=== PATIENT | female | born 1935 | race Caucasian/White ===

== ENCOUNTER 2021-10-18 13:19 | Inpatient (IN) ==
[2021-10-18] MEDS ORDERED: MoRPHine SULFATE 2 MG/ML CARP IV PRN (13:48)
[2021-10-18 14:06] LABS: Basophils # (auto) 0.01 K/uL (0-0.2); Basophils % (auto) 0.1 %; Eosinophils # (auto) 0.04 K/uL (0-0.5); Eosinophils % (auto) 0.6 %; Hematocrit (blood only) 41.9 % (37-47); Hemoglobin 14.5 g/dL (12.0-16.0); Immature Granulocytes # (auto) 0.02 K/uL (0.00-0.02); Immature Granulocytes % (auto) 0.3 %; Lymphocytes % (auto) 14.5 %; Mean Corpuscular Hemoglobin 31.7 pg (25-34); Mean Corpuscular Hgb Conc 34.6 g/dL (32-36); Mean Corpuscular Volume 91.7 fL (80-100); Mean Platelet Volume 9.5 fL (7.4-10.4); Monocytes # (auto) 0.33 K/uL (0.11-0.59); Monocytes % (auto) 4.8 %; Neutrophils # (auto) 5.51 K/uL (1.4-6.5); Neutrophils % (auto) 79.7 %; Platelet Count 238 K/uL (130-400); RDW Coefficient of Variation 14.4 % (11.5-14.5); RDW Standard Deviation 48.3 fL (36.4-46.3); Red Blood Count 4.57 M/uL (4.2-5.4); White Blood Count 6.91 K/uL (4.8-10.8)
--- NOTE | 2021-10-18 14:06 | Emergency Department Note ---
Impression & Plan Left hip pain, Closed fracture of left hip, Fall ED Provider Note NAME: NASIR MALONE AGE: 86 SEX: F : 1935 ARRIVES VIA: Ambulance INFORMANT: [Patient][nursing] ED PROVIDER(S): [Kyaw Shaw MD] CHIEF COMPLAINT: Fall HISTORY OF PRESENT ILLNESS: The patient is an 86-year-old female presents to the ER with left hip pain and lower back pain since falling. She somehow tripped over her vacuum. She fell on the left hip. She complained of a 10/10 pain that was improved after a small dose of IV fentanyl. She also received IV Zofran in route. The patient does not take any blood thinning medications. She did not strike her head or lose consciousness. She has no headache or neck pain. No upper back pain or chest pain. She has no upper extremity pain. She has been in baseline health as of late. REVIEW OF SYSTEMS: See HPI for pertinent positives and negatives. A total of ten systems were reviewed and were otherwise negative. PMHx/PSHx: See Below SOCIAL HISTORY: See Below. PHYSICAL EXAM: GENERAL: Patient is in no acute distress. HEENT: No acute trauma, normocephalic atraumatic, mucous membranes moist, no nasal congestion, no scleral icterus. NECK: No stridor, no adenopathy, nontender cervical spine, trachea is midline. LUNGS: Clear to auscultation bilaterally when listening anterior, no wheeze, no rhonchi, breath sounds equal. HEART: Without murmurs gallops or rubs, regular rate and rhythm. ABDOMEN: Soft, nontender, bowel sounds positive, no hernias, no peritonitis. EXTREMITIES: No cyanosis or edema, the patient is tender over the left lateral hip and there is a contusion in this area. Her hip is slightly flexed and her knee is flexed and there is some internal rotation to the left lower extremity. The left lower extremity is somewhat shortened. There is no evidence for left lower extremity neurovascular compromise. NEUROLOGIC: Oriented x 3, no acute motor or sensory deficits, no focal weakness. SKIN: No rash, no jaundice, no diaphoresis. DIFFERENTIAL DIAGNOSIS: Fracture, dislocation, sprain or strain, contusion, neurovascular compromise, compartment syndrome, soft tissue injury, as well as other pathologies. EMERGENCY DEPARTMENT COURSE/PROCEDURES: ECG: Indication was fall and potential hip fracture. The ECG shows a normal sinus rhythm with some sinus arrhythmia. The rate is 80. There is no ST elevation, no PVCs. There is poor R wave progression. The QTc is 445. Continuous Cardiac Monitoring: An order was placed for continuous cardiac monitoring. The monitor shows a rate of 80 with normal sinus rhythm. MEDICAL DECISION MAKING: There is no leukocytosis or concerning anemia. There is a normal platelet count. No coagulopathy. No significant electrolyte abnormality in need of emergent correction. No concerning liver enzyme elevation. Urinalysis did not show infection. Covid testing returned negative. Chest x-ray showed some chronic findings, no CHF or pneumonia. Left hip and pelvis films were done, a left subcapital hip fracture was seen. CT imaging of the lumbar spine did not show any acute fracture. CT imaging of the pelvis showed the same subcapital left hip fracture. The patient received IV morphine for pain, she has been resting fairly comfortably. The patient appears to have injured only her left hip from her fall. He is going to require a hospital stay and orthopedic consult/intervention. I spoke with orthopedics, I spoke with the case management team. The on-call hospitalist was consulted. The patient is aware of her findings. Past Med/Surg History Medical History CAD (coronary artery disease) DM type 2 (diabetes mellitus, type 2) HLD (hyperlipidemia) HTN (hypertension) Surgical History H/O left wrist surgery History of cataract surgery Hx of CABG 2001 - Initially she received CORTES to LAD but developed spasm and redo CORTES was done but still had spasm and she received vein graft to the LAD more distally. 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[employer] Generating Required: No Beliefs That Will Affect Care: None Current Living Situation: Alone Feels Safe at Home: Yes Assistive Devices: Oxygen - Continuous Allergies Allergies Allergy/AdvReac Type Severity Reaction Status Date / Time Penicillins Allergy Unknown Unknown Verified 10/18/21 14:17 Home Meds Home Medications Medication Instructions Recorded Confirmed amlodipine 2.5 mg tablet 2.5 mg PO DAILY 10/18/21 10/18/21 aspirin 81 mg tablet,delayed 81 mg PO HS 10/18/21 10/18/21 release (Aspirin Low Dose) atorvastatin 40 mg tablet 80 mg PO DAILY 10/18/21 10/18/21 metformin 500 mg tablet 500 mg PO DAILY 10/18/21 10/18/21 metoprolol succinate 50 mg 50 mg PO DAILY 10/18/21 10/18/21 tablet,extended release 24 hr multivitamin 1 tab PO DAILY 10/18/21 10/18/21 omeprazole 40 mg capsule,delayed 40 mg PO DAILY 10/18/21 10/18/21 release ramipril 10 mg capsule 10 mg PO DAILY 10/18/21 10/18/21 Results & Data (ED) Vital Signs Vital Signs - 24 hr 10/18/21 13:28 10/18/21 13:35 Temperature 36.6 C Temperature Source Oral Pulse Rate 80 Respiratory Rate 16 Respiratory Effort / Characteristics Non-Labored Spontaneous Respiratory Depth Normal Respiratory Pattern Regular Blood Pressure 192/98 H Blood Pressure Mean 129 Blood Pressure Position Lying Pulse Oximetry 88 L 95 Oxygen Delivery Method Room Air Nasal Cannula Oxygen Flow Rate 2 Sepsis Recent Fever Within 48 Hours No Sepsis New/Unexplained Change in Mental Status No Sepsis Action Taken by Nursing No Action Required Home Medications Current Medication List: was personally reviewed by me Laboratory Data Attestation: I reviewed the patient's lab results. Result diagrams: 10/18/21 13:30 10/18/21 13:30 Lab Results 10/18/21 10/18/21 10/18/21 Range/Units 13:30 13:30 13:30 WBC 6.91 (4.8-10.8) K/uL RBC 4.57 (4.2-5.4) M/uL Hgb 14.5 (12.0-16.0) g/dL Hct 41.9 (37-47) % MCV 91.7 (80-100) fL MCH 31.7 (25-34) pg MCHC 34.6 (32-36) g/dL RDW Std Deviation 48.3 H (36.4-46.3) fL RDW Coeff of Maki 14.4 (11.5-14.5) % Plt Count 238 (130-400) K/uL MPV 9.5 (7.4-10.4) fL Immature Gran % (Auto) 0.3 % Neut % (Auto) 79.7 % Lymph % (Auto) 14.5 % Dent % (Auto) 4.8 % Eos % (Auto) 0.6 % Baso % (Auto) 0.1 % Neut # (Auto) 5.51 (1.4-6.5) K/uL Lymph # (Auto) 1.00 L (1.2-3.4) K/uL Dent # (Auto) 0.33 (0.11-0.59) K/uL Eos # (Auto) 0.04 (0-0.5) K/uL Baso # (Auto) 0.01 (0-0.2) K/uL Immature Gran # (Auto) 0.02 (0.00-0.02) K/uL PT 11.5 (9.0-12.0) Seconds INR 1.1 (0.9-1.1) APTT 25.1 (21.0-31.0) Seconds PTT Ratio 0.9 Sodium 137 (136-145) mmol/L Potassium 3.5 (3.5-5.1) mmol/L Chloride 101 (98-107) mmol/L Carbon Dioxide 28 (21-32) mmol/L Anion Gap 8 (3-11) BUN 18 (6-23) mg/dl Creatinine 0.75 (0.6-1.2) mg/dl Est Cr Clr Drug Dosing Not Reportable Est GFR ( Amer) 83.7 ml/min Est GFR (Non-Af Amer) 72.2 ml/min BUN/Creatinine Ratio 24.0 H (10-20) Glucose 195 H (70-99(Fasting)) mg/dl Calcium 8.6 (8.5-10.1) mg/dl Total Bilirubin 0.6 (0.2-1.0) mg/dl AST 22 (13-39) U/L ALT 24 (7-52) U/L Alkaline Phosphatase 73 (34-104) U/L Total Protein 6.6 (6.0-8.3) gm/dl Albumin 4.2 (3.4-5.0) gm/dl Globulin 2.4 L (2.5-4.0) gm/dl Albumin/Globulin Ratio 1.8 (0.9-2) Urine Color Urine Appearance (Clear) Urine pH (4.5-7.5) Ur Specific [place] (1.000-1.030) Urine Protein (Negative) Urine Glucose (UA) (Negative) Urine Ketones (Negative) Urine Blood (Negative) Urine Nitrite (Negative) Urine Bilirubin (Negative) Urine Urobilinogen (Negative) Ur Leukocyte Esterase (Negative) SARS-CoV-2, RNA, NAAT (NEGATIVE) 10/18/21 10/18/21 Range/Units 14:03 15:16 WBC (4.8-10.8) K/uL RBC (4.2-5.4) M/uL Hgb (12.0-16.0) g/dL Hct (37-47) % MCV (80-100) fL MCH (25-34) pg MCHC (32-36) g/dL RDW Std Deviation (36.4-46.3) fL RDW Coeff of Maki (11.5-14.5) % Plt Count (130-400) K/uL MPV (7.4-10.4) fL Immature Gran % (Auto) % Neut % (Auto) % Lymph % (Auto) % Dent % (Auto) % Eos % (Auto) % Baso % (Auto) % Neut # (Auto) (1.4-6.5) K/uL Lymph # (Auto) (1.2-3.4) K/uL Dent # (Auto) (0.11-0.59) K/uL Eos # (Auto) (0-0.5) K/uL Baso # (Auto) (0-0.2) K/uL Immature Gran # (Auto) (0.00-0.02) K/uL PT (9.0-12.0) Seconds INR (0.9-1.1) APTT (21.0-31.0) Seconds PTT Ratio Sodium (136-145) mmol/L Potassium (3.5-5.1) mmol/L Chloride (98-107) mmol/L Carbon Dioxide (21-32) mmol/L Anion Gap (3-11) BUN (6-23) mg/dl Creatinine (0.6-1.2) mg/dl Est Cr Clr Drug Dosing Est GFR ( Amer) ml/min Est GFR (Non-Af Amer) ml/min BUN/Creatinine Ratio (10-20) Glucose (70-99(Fasting)) mg/dl Calcium (8.5-10.1) mg/dl Total Bilirubin (0.2-1.0) mg/dl AST (13-39) U/L ALT (7-52) U/L Alkaline Phosphatase (34-104) U/L Total Protein (6.0-8.3) gm/dl Albumin (3.4-5.0) gm/dl Globulin (2.5-4.0) gm/dl Albumin/Globulin Ratio (0.9-2) Urine Color Nash Urine Appearance Clear (Clear) Urine pH 7.5 (4.5-7.5) Ur Specific [place] 1.013 (1.000-1.030) Urine Protein Negative (Negative) Urine Glucose (UA) Trace H (Negative) Urine Ketones Negative (Negative) Urine Blood Negative (Negative) Urine Nitrite Negative (Negative) Urine Bilirubin Negative (Negative) Urine Urobilinogen Negative (Negative) Ur Leukocyte Esterase Negative (Negative) SARS-CoV-2, RNA, NAAT NEGATIVE (NEGATIVE) Administered Medications Acetaminophen (Acetaminophen 325 Mg Tab) 650 mg PO Q8 ZIGGY Stop: 11/17/21 17:29 Last Admin: 10/18/21 18:05 Dose: 650 mg Documented by: [id number] Insulin Aspart (Insulin Aspart Per Unit) 0 units SC ACHS ZIGGY Stop: 11/17/21 17:14 Last Admin: 10/18/21 18:05 Dose: 1 units Documented by: [id number] Cosigned by: [id number] Imaging Data Radiologist's Impression: Hip/Pelvis X-Ray 10/18/21 13:48 XR hip LT 2V w pelvis CLINICAL HISTORY: Fall. Left hip pain. COMPARISON STUDY: None. FINDINGS: There is impacted and angulated left femoral neck fracture. The visualized pelvic bones and right hip are intact. Degenerative changes within the lumbar spine. No dislocation. IMPRESSION: Impacted left femoral neck fracture. ACT 112: Negative or not required by law. Electronically signed by: Obed Feliz M.D. 10/18/2021 2:[address] 10/18/21 13:[address] DOSE: HISTORY: Fall. Low back pain. TECHNIQUE: Multiaxial CT images of the lumbar spine were performed and reformatted in the sagittal and coronal plane without the use of contrast. A dose lowering technique was utilized adhering to the principles of ALARA. COMPARISON: None. FINDINGS: Moderate central canal narrowing at L3-L4 and L4-5 due to broad-based posterior disc bulges and ligamentum flavum and facet hypertrophy. Paravertebral soft tissues are unremarkable. Dextroscoliosis. The visualized sacrum appears intact. No fracture or subluxation. 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 Partially calcified 3 cm right renal cyst. IMPRESSION: 1. No fractures within the lumbar spine. 2. Degenerative changes as described above. 3. Dextroscoliosis. ACT 112: Negative or not required by law. Electronically signed by: Obed Feliz M.D. 10/18/2021 2:[address] 10/18/21 13:48 CT pelvis wo con HISTORY: Left hip pain. fall, pain TECHNIQUE: Multiaxial CT images of the pelvis were performed without contrast and reformatted in the sagittal and coronal plane. COMPARISON STUDY: None. FINDINGS: There is a slightly impacted and angulated subcapital left femoral neck fracture. No dislocation. The visualized pelvic bones and right hip appear intact. 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 No fractures identified within the sacrum. The bladder is decompressed by Bravo catheter. Gas within the bladder lumen is likely due to the catheterization. No pelvic hematoma. IMPRESSION: Slightly impacted and angulated subcapital left femoral neck fracture. ACT 112: Negative or not required by law. Electronically signed by: Obed Feliz M.D. 10/18/2021 2:44 PM Chest X-Ray 10/18/21 13:49 SINGLE VIEW CHEST CLINICAL HISTORY: Fall. FINDINGS: An AP, portable, supine chest radiograph is obtained. No prior studies are available for comparison at the time of dictation. The patient is status post midline sternotomy. The heart is enlarged noting atherosclerotic calcification of the thoracic aorta. The pulmonary vasculature is noncongested. Interstitial thickening is likely chronic. There is bibasilar sc arring/atelectasis. No airspace consolidation or large pleural effusion is identified. No pneumothorax is seen. The skeletal structures are osteopenic. The bony thorax is grossly intact. IMPRESSION: Cardiomegaly with no acute cardiopulmonary abnormality. ACT 112: Negative or not required by law. Electronically signed by: Kyaw Villalobos M.D. 10/18/2021 2:30 PM Discharge Plan Visit Data Chief Complaint: Fall Stated Complaint: FALL, L HIP PAIN ED Provider: Kyaw Shaw Discharge Problem: Left hip pain, Closed fracture of left hip, Fall Patient Disposition: Admitted As Inpatient Condition: Good Discharge Instructions Interventions: ED Discharge Assessment Last Done: 10/18/21 16:37
[2021-10-18 14:12] LABS: INR 1.1 (0.9-1.1); Partial Thromboplastin Ratio 0.9; Partial Thromboplastin Time 25.1 Seconds (21.0-31.0); Prothrombin Time 11.5 Seconds (9.0-12.0)
[2021-10-18 14:19] LABS: Alanine Aminotransferase 24 U/L (7-52); Albumin Globulin Ratio 1.8 (0.9-2); Albumin Level 4.2 gm/dl (3.4-5.0); Alkaline Phosphatase 73 U/L (34-104); Anion Gap 8 (3-11); Aspartate Aminotransferase 22 U/L (13-39); Bilirubin,Total 0.6 mg/dl (0.2-1.0); Blood Urea Nitrogen 18 mg/dl (6-23); Calcium 8.6 mg/dl (8.5-10.1); Carbon Dioxide 28 mmol/L (21-32); Chloride 101 mmol/L (98-107); Est GFR (African American) 83.7 ml/min; Est GFR (Non-African American) 72.2 ml/min; Globulin 2.4 gm/dl (2.5-4.0); Glucose 195 mg/dl (70-99(Fasting)); Potassium 3.5 mmol/L (3.5-5.1); Sodium 137 mmol/L (136-145); Total Protein 6.6 gm/dl (6.0-8.3)
--- NOTE | 2021-10-18 14:31 | XRay Report ---
SINGLE VIEW CHEST CLINICAL HISTORY: Fall. FINDINGS: An AP, portable, supine chest radiograph is obtained. No prior studies are available for co mparison at the time of dictation. The patient is status post midline sternotomy. The heart is enlar ged noting atherosclerotic calcification of the thoracic aorta. The pulmonary vasculature is nonconge sted. Interstitial thickening is likely chronic. There is bibasilar scarring/atelectasis. No airspace consolidation or large pleural effusion is identified. No pneumothorax is seen. The skeletal structu res are osteopenic. The bony thorax is grossly intact. IMPRESSION: Cardiomegaly with no acute cardiopulmonary abnormality. ACT 112: Negative or not required by law. Electronically signed by: Kyaw Villalobos M.D. 10/18/2021 2:30 PM
--- NOTE | 2021-10-18 14:42 | XRay Report ---
XR hip LT 2V w pelvis CLINICAL HISTORY: Fall. Left hip pain. COMPARISON STUDY: None. FINDINGS: There is impacted and angulated left femoral neck fracture. The visualized pelvic bones and right hip are intact. Degenerative changes within the lumbar spine. No dislocation. IMPRESSION: Impacted left femoral neck fracture. ACT 112: Negative or not required by law. Electronically signed by: Obed Feliz M.D. 10/18/2021 2:41 PM
[2021-10-18 14:43] LABS: Appearance Urine Clear (Clear); Bilirubin Urine Negative (Negative); Blood Urine Negative (Negative); Color Urine Orange; Glucose Urine UA Trace (Negative); Ketones Urine Negative (Negative); Leukocyte Esterase Urine Negative (Negative); Nitrite Urine Negative (Negative); Protein Urine Negative (Negative); Specific Gravity Urine 1.013 (1.000-1.030); Urobilinogen Urine Negative (Negative); pH Urine 7.5 (4.5-7.5)
--- NOTE | 2021-10-18 14:45 | CT Scan Report ---
CT pelvis wo con HISTORY: Left hip pain. fall, pain TECHNIQUE: Multiaxial CT images of the pelvis were performed without contrast and reformatted in the sagittal and coronal plane. COMPARISON STUDY: None. FINDINGS: There is a slightly impacted and angulated subcapital left femoral neck fracture. No disloc ation. The visualized pelvic bones and right hip appear intact. 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 No fractures identified within the sacrum. The bladder is decompressed by Bravo catheter. Gas within the bladder lumen is likely due to the catheterization. No pelvic hematoma. IMPRESSION: Slightly impacted and angulated subcapital left femoral neck fracture. ACT 112: Negative or not required by law. Electronically signed by: Obed Feliz M.D. 10/18/2021 2:44 PM
--- NOTE | 2021-10-18 14:50 | CT Scan Report ---
LUMBAR SPINE CT CT DOSE: HISTORY: Fall. Low back pain. TECHNIQUE: Multiaxial CT images of the lumbar spine were performed and reformatted in the sagittal an d coronal plane without the use of contrast. A dose lowering technique was utilized adhering to the principles of ALARA. COMPARISON: None. FINDINGS: Moderate central canal narrowing at L3-L4 and L4-5 due to broad-based posterior disc bulges and ligamentum flavum and facet hypertrophy. Paravertebral soft tissues are unremarkable. Dextroscol iosis. The visualized sacrum appears intact. No fracture or subluxation. Moderate to severe degenerat francis changes within the lumbar spine most pronounced at the L4-5 level.There is an 8 mm calcified dist al right splenic artery aneurysm. Partially calcified 3 cm right renal cyst. IMPRESSION: 1. No fractures within the lumbar spine. 2. Degenerative changes as described above. 3. Dextroscoliosis. ACT 112: Negative or not required by law. Electronically signed by: Obed Feliz M.D. 10/18/2021 2:48 PM
--- NOTE | 2021-10-18 16:17 | History & Physical Report ---
Date of Service October 18, 2021 Assessment & Plan (1) Fracture of femoral neck, left: Plan: Admit to [facility] [place] Patient presenting from home after a mechanical fall In the ED, imaging shows impacted left femoral neck fracture Ortho consult Pain control with bowel regimen PT/OT when appropriate EKG and CXR reviewed. Patient denies any recent cardiopulmonary symptoms. Patient will be considered at least moderate risk given advanced age and comorbid conditions to proceed surgery. (2) Hypoxia: Plan: 88% on room air after IV pain medications Saturating well on 2L CXR clear Incentive spirometry encouraged Wean O2 as able (3) CAD (coronary artery disease): Plan: Remote history of CABG in 2001 Appears stable, no reports of chest pain, EKG without acute ST changes Resume ASA at the discretion of Ortho Continue statin, beta-velia (4) HTN (hypertension): Plan: BP elevated on presentation, likely secondary to pain, improved after pain medication Continue metoprolol, ramipril, amlodipine (5) DM type 2 (diabetes mellitus, type 2): Plan: Hgb A1c 7.8 06/2021 Hold oral agents and utilize NovoLog per protocol while hospitalized Update A1c with a.m. labs (6) DVT prophylaxis: Plan: SCDs for now History of Present Illness Chief Complaint: Left Hip Pain Primary Care Provider: Nannette Johnson MD 86-year-old female with PMH DM type II, CAD s/p CABG in 2001, HTN, DM type II, and other problems listed below who presents to the ED for evaluation of left hip pain. Patient reports that she was using her vacuum at home and tripped over the cord. She then fell onto her left side. She was home alone however her son stopped by about 15 minutes after. EMS was called and patient was brought to the ED for further evaluation. Patient did not strike her head and she denies any loss of consciousness. Reports she otherwise has been feeling well recently. Denies any exertional chest pain or shortness of breath. No lightheadedness, dizziness, diaphoresis, syncopal events. Denies abdominal pain, nausea, vomiting, diarrhea. No urinary symptoms. In the ED, patient is found to have slightly impacted and angulated subcapital left femoral neck fracture. Labs unremarkable. Patient was mildly hypoxic at 88% after receiving IV pain medication. She is saturating well on 2 L of oxygen. Allergies Allergy/AdvReac Type Severity Reaction Status Date / Time Penicillins Allergy Unknown Unknown Verified 10/18/21 14:17 Home Medications Medication Instructions Recorded Confirmed Type amlodipine 2.5 mg tablet 2.5 mg PO DAILY 10/18/21 10/18/21 History aspirin 81 mg tablet,delayed 81 mg PO HS 10/18/21 10/18/21 History release (Aspirin Low Dose) atorvastatin 40 mg tablet 80 mg PO DAILY 10/18/21 10/18/21 History metformin 500 mg tablet 500 mg PO DAILY 10/18/21 10/18/21 History metoprolol succinate 50 mg 50 mg PO DAILY 10/18/21 10/18/21 History tablet,extended release 24 hr multivitamin 1 tab PO DAILY 10/18/21 10/18/21 History omeprazole 40 mg capsule,delayed 40 mg PO DAILY 10/18/21 10/18/21 History release ramipril 10 mg capsule 10 mg PO DAILY 10/18/21 10/18/21 History Past Med/Surg History Medical History CAD (coronary artery disease) DM type 2 (diabetes mellitus, type 2) HLD (hyperlipidemia) HTN (hypertension) Surgical History H/O left wrist surgery History of cataract surgery Hx of CABG 2001 - Initially she received CORTES to LAD but developed spasm and redo CORTES was done but still had spasm and she received vein graft to the LAD more distally. Family History Mother Breast cancer Social History Smoking Status: Never smoker Second Hand Exposure: No; Hx Alcohol Use: No Hx Substance Use: No Preferred Language: Mac[place] Medicine Technologist Required: No Beliefs That Will Affect Care: None Current Living Situation: Alone Feels Safe at Home: Yes Assistive Devices: Oxygen - Continuous Review of Systems Review of Systems: ROS per HPI, all other systems reviewed and negative Physical Exam Constitutional: + thin; no acute distress Vitals as above Eyes: PERRL, conjunctivae normal, anicteric sclerae ENMT: external ear and nose normal, oropharynx normal Respiratory: normal respiratory effort, lungs clear to auscultation Cardiovascular: Rate/Rhythm: regular rate and regular rhythm Vessels: normal peripheral pulses Extremities: no edema Gastrointestinal (Abdomen): normal bowel sounds, soft, nontender, no hepatosplenomegaly Musculoskeletal: LLE shortened and externally rotated Skin: no rashes, warm and dry Neurologic: PERRL, EOMI, accommodation nl, no face palsy, no dysarthria Psychiatric: A+Ox3, euthymic affect Results & Data Results & Data ([facility]) Vital Signs (Past 12 Hours) Vital Signs Temp Pulse Resp BP Pulse Ox 10/18/21 13:35 95 10/18/21 13:28 36.6 C 80 16 192/98 H 88 L Laboratory Results Short CBC 10/18/21 Range/Units 13:30 WBC 6.91 (4.8-10.8) K/uL Hgb 14.5 (12.0-16.0) g/dL Hct 41.9 (37-47) % Plt Count 238 (130-400) K/uL BMP 10/18/21 13:30 Sodium 137 Potassium 3.5 Chloride 101 Carbon Dioxide 28 BUN 18 Creatinine 0.75 Glucose 195 H Calcium 8.6 Liver Function 10/18/21 Range/Units 13:30 Total Bilirubin 0.6 (0.2-1.0) mg/dl AST 22 (13-39) U/L ALT 24 (7-52) U/L Alkaline Phosphatase 73 (34-104) U/L Albumin 4.2 (3.4-5.0) gm/dl Urine 10/18/21 Range/Units 14:03 Urine Color [place] Urine Appearance Clear (Clear) Urine pH 7.5 (4.5-7.5) Ur Specific [place] 1.013 (1.000-1.030) Urine Protein Negative (Negative) Urine Glucose (UA) Trace H (Negative) Diagnostic Findings Hip/Pelvis X-Ray 10/18/21 13:48 XR hip LT 2V w pelvis CLINICAL HISTORY: Fall. Left hip pain. COMPARISON STUDY: None. FINDINGS: There is impacted and angulated left femoral neck fracture. The visualized pelvic bones and right hip are intact. Degenerative changes within the lumbar spine. No dislocation. IMPRESSION: Impacted left femoral neck fracture. ACT 112: Negative or not required by law. Electronically signed by: Obed Feliz M.D. 10/18/2021 2:[address] 10/18/21 13:[address] DOSE: HISTORY: Fall. Low back pain. TECHNIQUE: Multiaxial CT images of the lumbar spine were performed and reformatted in the sagittal and coronal plane without the use of contrast. A dose lowering technique was utilized adhering to the principles of ALARA. COMPARISON: None. FINDINGS: Moderate central canal narrowing at L3-L4 and L4-5 due to broad-based posterior disc bulges and ligamentum flavum and facet hypertrophy. Paravertebral soft tissues are unremarkable. Dextroscoliosis. The visualized sacrum appears intact. No fracture or subluxation. 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 Partially calcified 3 cm right renal cyst. IMPRESSION: 1. No fractures within the lumbar spine. 2. Degenerative changes as described above. 3. Dextroscoliosis. ACT 112: Negative or not required by law. Electronically signed by: Obed Feliz M.D. 10/18/2021 2:[address] 10/18/21 13:48 CT pelvis wo con HISTORY: Left hip pain. fall, pain TECHNIQUE: Multiaxial CT images of the pelvis were performed without contrast and reformatted in the sagittal and coronal plane. COMPARISON STUDY: None. FINDINGS: There is a slightly impacted and angulated subcapital left femoral neck fracture. No dislocation. The visualized pelvic bones and right hip appear intact. 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 No fractures identified within the sacrum. The bladder is decompressed by Bravo catheter. Gas within the bladder lumen is likely due to the catheterization. No pelvic hematoma. IMPRESSION: Slightly impacted and angulated subcapital left femoral neck fracture. ACT 112: Negative or not required by law. Electronically signed by: Obed Feliz M.D. 10/18/2021 2:44 PM Chest X-Ray 10/18/21 13:49 SINGLE VIEW CHEST CLINICAL HISTORY: Fall. FINDINGS: An AP, portable, supine chest radiograph is obtained. No prior studies are available for comparison at the time of dictation. The patient is status post midline sternotomy. The heart is enlarged noting atherosclerotic calcification of the thoracic aorta. The pulmonary vasculature is noncongested. Interstitial thickening is likely chronic. There is bibasilar scarring/atelectasis. No airspace consolidation or large pleural effusion is identified. No pneumothorax is seen. The skeletal structures are osteopenic. The bony thorax is grossly intact. IMPRESSION: Cardiomegaly with no acute cardiopulmonary abnormality. ACT 112: Negative or not required by law. Electronically signed by: Kyaw Villalobos M.D. 10/18/2021 2:30 PM Code Status & VTE Plan Code Status Patient is a full code as per my discussion with her. Patient states that her daughter, Payal, would make decisions for her in the event she were to be unable to. VTE Prophylaxis Plan VTE Prophylaxis will be ordered: Yes Supervising Physician Co-Signing Physician Notes 86-year-old female with PMH of DM type II, CAD s/p CABG in 2001, HTN, DM type II who presented to the ED 10/18 after tripping over left side, mechanical fall, no nausea/dizziness/palpitations/sweating/warmth/loss of consciousness surrounding fall. Patient found to have left femoral neck fracture, orthopedics evaluated, for repair tomorrow. Patient also pain and elevated blood pressure likely related. Pain control, resume home meds, cautious with antihypertensive especially in postop period. GENERAL: Alert and oriented x3. NAD, on 2L. HEENT: No pallor, no icterus. Pupils equal, round and reactive to light. Oral mucosa moist. NECK: No JVD, no neck masses. HEART: S1 and S2 heard. Regular rate and rhythm. No murmur, no gallop. RESPIRATORY SYSTEM: Normal AP diameter. No accessory muscle use. No wheezing, no crackles. ABDOMEN: Soft, bowel sounds present, nontender, no distention. CENTRAL NERVOUS SYSTEM: No facial droop. Speech is clear. Obeys simple commands. Moves extremities. EXTREMITIES: No edema, no erythema seen. LLE with intact distal NV status, left hip with approx 7x5 cm bruise. I have seen and examined the patient and have discussed the case with the provider above. I agree with the assessment and plan as stated.
--- NOTE | 2021-10-18 16:51 | Orthopedic Consultation ---
Date of Service October 18, 2021 Assessment & Plan (1) Fracture of femoral neck, left: I went over the diagnosis as well as treatment options with her and her daughter at bedside. I did recommend surgery which would include a left hip hemiarthroplasty. Her and her daughter understand the risk, benefits, and alternatives to the procedure and elected to proceed. Questions were answered at bedside. Time was spent describing the procedure and postop expectations. The decision was made to proceed with surgery. She will be admitted to the medicine service. She will be n.p.o. past midnight tonight. She will likely proceed with a left hip hemiarthroplasty by Dr. Medina tomorrow. History of Present Illness Reason for Consultation: Displaced left femoral neck fracture. Requesting Physician: . Yamileth is a pleasant 86-year-old female who is usually in independent ambulator but she sometimes uses a cane or walker. She lives in a house by herself but family is nearby. She fell earlier today injuring her left hip. She came to the emergency room and radiographs demonstrated a displaced left femoral neck fracture. Orthopedics was consulted to evaluate and treat. Allergies Allergy/AdvReac Type Severity Reaction Status Date / Time Penicillins Allergy Unknown Unknown Verified 10/18/21 14:17 Home Medications Medication Instructions Recorded Confirmed Type amlodipine 2.5 mg tablet 2.5 mg PO DAILY 10/18/21 10/18/21 History aspirin 81 mg tablet,delayed 81 mg PO HS 10/18/21 10/18/21 History release (Aspirin Low Dose) atorvastatin 40 mg tablet 80 mg PO DAILY 10/18/21 10/18/21 History metformin 500 mg tablet 500 mg PO DAILY 10/18/21 10/18/21 History metoprolol succinate 50 mg 50 mg PO DAILY 10/18/21 10/18/21 History tablet,extended release 24 hr multivitamin 1 tab PO DAILY 10/18/21 10/18/21 History omeprazole 40 mg capsule,delayed 40 mg PO DAILY 10/18/21 10/18/21 History release ramipril 10 mg capsule 10 mg PO DAILY 10/18/21 10/18/21 History Past Med/Surg History Medical History CAD (coronary artery disease) DM type 2 (diabetes mellitus, type 2) HLD (hyperlipidemia) HTN (hypertension) Surgical History H/O left wrist surgery History of cataract surgery Hx of CABG 2001 - Initially she received CORTES to LAD but developed spasm and redo CORTES was done but still had spasm and she received vein graft to the LAD more distally. Family History Mother Breast cancer Social History Smoking Status: Never smoker Hx Alcohol Use: No Feels Safe at Home: Yes Review of Systems All systems reviewed & are unremarkable except as noted in HPI & below. Physical Exam On physical examination of the left hip, there are no abrasions, lesions, or lacerations of the skin. Her left leg is shortened and externally rotated. She is neurovascularly intact. Constitutional WD/WN, vitals as above Eyes PERRL, conjunctivae normal, anicteric sclerae ENMT external ear and nose normal, oropharynx normal Neck trachea midline, no thyromegaly Respiratory normal respiratory effort Cardiovascular RRR, no murmur, no edema Gastrointestinal (Abdomen) normal bowel sounds, soft, nontender, no hepatosplenomegaly Psychiatric A+Ox3, euthymic affect Results & Data Results & Data Laboratory Results . Diagnostic Findings X-rays of the left hip do show a displaced left femoral neck fracture.. PG Care Time/CCT Total # of Minutes Spent Total Time Spent with Patient: Total time spent is greater than 50% in coordination of care (as documented) at patient's floor/unit and/or counseling patient: Coding Level of Care Code 69393 Inpt Consult Level 4 (57 - DECISION FOR SURGERY) Diagnoses Fracture of femoral neck, left S72.002A
[2021-10-18] MEDS ORDERED: bisacodyL 10 MG SUPP PR PRN (17:02)
[2021-10-18] MEDS ORDERED: DEXTROSE 50% 50 ML SYRINGE IV PRN (17:02)
[2021-10-18] MEDS ORDERED: MAGNESIUM HYDROXIDE SUSP 30 ML UDC PO PRN (17:02)
[2021-10-18] MEDS ORDERED: CARBOHYDRATES FOR HYPOGLYCEMIA PO PRN (17:02)
[2021-10-18] MEDS ORDERED: GLUCOSE 10 TABS/TUBE PO PRN (17:02)
[2021-10-18] MEDS ORDERED: GLUCAGON FOR INJ 1 MG VIAL SQ PRN (17:02)
[2021-10-18] MEDS ORDERED: GLUCOSE 40% GEL 15 GM TUBE PO PRN (17:02)
[2021-10-18] MEDS ORDERED: NALOXONE HCL 0.4 MG/1 ML VIAL/CARP IV PRN (17:02)
[2021-10-18] MEDS: ACETAMINOPHEN 325 MG TAB PO SCH ×2 (18:05→22:45)
[2021-10-18] MEDS: INSULIN ASPART PER UNIT SC SCH ×2 (18:05→21:01)
--- NOTE | 2021-10-18 18:06 | Anesthesiology Consultation ---
Date of Service October 18, 2021 Assessment & Plan (1) Encounter for pre-operative examination: Chart Review Chart Review: Acceptable Risk for Surgery and Patient NOT seen in Pre Admission Testing Consults Requested none History Surgery Operation Date: 10/19/21 07:00 Proposed Procedures p Left Bipolar Hip Prosthesis - Kyle Medina MD Height/Weight Height: 5 ft 2 in Weight: 48.6 kg Allergies Allergy/AdvReac Type Severity Reaction Status Date / Time Penicillins Allergy Unknown Unknown Verified 10/18/21 14:17 Medications Home Medications Medication Instructions Recorded Confirmed Last Taken amlodipine 2.5 mg tablet 2.5 mg PO DAILY 10/18/21 10/18/21 Unknown aspirin 81 mg tablet,delayed 81 mg PO HS 10/18/21 10/18/21 Unknown release (Aspirin Low Dose) atorvastatin 40 mg tablet 80 mg PO DAILY 10/18/21 10/18/21 Unknown metformin 500 mg tablet 500 mg PO DAILY 10/18/21 10/18/21 Unknown metoprolol succinate 50 mg 50 mg PO DAILY 10/18/21 10/18/21 Unknown tablet,extended release 24 hr multivitamin 1 tab PO DAILY 10/18/21 10/18/21 Unknown omeprazole 40 mg capsule,delayed 40 mg PO DAILY 10/18/21 10/18/21 Unknown release ramipril 10 mg capsule 10 mg PO DAILY 10/18/21 10/18/21 Unknown Past Medical History Medical History CAD (coronary artery disease) DM type 2 (diabetes mellitus, type 2) HLD (hyperlipidemia) HTN (hypertension) Past Family History Family History Mother Breast cancer Past Surgical History Surgical History H/O left wrist surgery History of cataract surgery Hx of CABG 2001 - Initially she received CORTES to LAD but developed spasm and redo CORTES was done but still had spasm and she received vein graft to the LAD more distally. Social History Smoking Status: Never smoker Hx Alcohol Use: No Hx Substance Use: No substance use type: does not use Physical Exam Vital Signs Last Vital Signs Temp 36.4 C L 10/18/21 17:03 Pulse 88 10/18/21 17:03 Resp 18 10/18/21 17:03 BP 151/83 H 10/18/21 17:03 Pulse Ox 95 10/18/21 17:03 Testing Laboratory Results 10/18/21 13:30 10/18/21 13:30 PT 11.5 Seconds (9.0-12.0) 10/18/21 13:30 INR 1.1 (0.9-1.1) 10/18/21 13:30 APTT 25.1 Seconds (21.0-31.0) 10/18/21 13:30 Urine Color [place] 10/18/21 14:03 Urine Appearance Clear (Clear) 10/18/21 14:03 Urine pH 7.5 (4.5-7.5) 10/18/21 14:03 Ur Specific [place] 1.013 (1.000-1.030) 10/18/21 14:03 Urine Protein Negative (Negative) 10/18/21 14:03 Urine Glucose (UA) Trace (Negative) H 10/18/21 14:03 Urine Ketones Negative (Negative) 10/18/21 14:03 Urine Nitrite Negative (Negative) 10/18/21 14:03 Ur Leukocyte Esterase Negative (Negative) 10/18/21 14:03 10/18/21 17:44 POC Glucose 200 H Electrocardiogram Date: 10/18/21 Findings: + NSR @ (80) sinus arrhythmia, possible left atrial enlargement, anterior infarct age undetermined, no prior EKG for comparison Chest X-Ray Date: 10/18/21 Findings: + NAD and + cardiomegaly
[2021-10-18] MEDS: DOCUSATE SODIUM/SENNA 50/8.6MG TAB PO SCH (21:04)
--- NOTE | 2021-10-18 21:48 | Electrocardiogram Report ---
Test Reason : Blood Pressure : / mmHG Vent. Rate : 080 BPM Atrial Rate : 080 BPM P-R Int : 146 ms QRS Dur : 084 ms QT Int : 400 ms P-R-T Axes : 076 063 064 degrees QTc Int : 462 ms Normal sinus rhythm with sinus arrhythmia Possible Left atrial enlargement Anterior infarct , age undetermined Abnormal ECG No previous ECGs available Confirmed by Zack Subramanian ([id number]) on 10/18/2021 9:48:29 PM Referred By: REFERRED SELF Confirmed By:Zack Subramanian
[2021-10-19] MEDS: ACETAMINOPHEN 325 MG TAB PO SCH ×3 (05:33→22:22)
[2021-10-19 05:35] LABS: Hematocrit (blood only) 39.5 % (37-47); Mean Corpuscular Hgb Conc 35.4 g/dL (32-36); Mean Corpuscular Volume 90.4 fL (80-100); Mean Platelet Volume 9.2 fL (7.4-10.4); Platelet Count 182 K/uL (130-400); RDW Coefficient of Variation 14.1 % (11.5-14.5); RDW Standard Deviation 46.6 fL (36.4-46.3); Red Blood Count 4.37 M/uL (4.2-5.4)
[2021-10-19 05:54] LABS: Calcium 9.2 mg/dl (8.5-10.1); Creatinine Clr Calc Pharmacy 49.2 ml/min; Est GFR (African American) 94.1 ml/min; Est GFR (Non-African American) 81.2 ml/min; Potassium 3.7 mmol/L (3.5-5.1)
[2021-10-19] MEDS ORDERED: ceFAZolin 2000MG 2,000 MG/15 ML SYR IV SCH (06:00)
[2021-10-19] MEDS ORDERED: TRANEXAMIC ACID / 0.7% NACL 1,000 MG/100 ML BAG IV SCH ×2 (06:00→06:30)
[2021-10-19] MEDS: ENALAPRIL MALEATE 10 MG TAB PO SCH (07:24)
[2021-10-19] MEDS: amLODIPine BESYLATE 5 MG TAB PO SCH (07:24)
[2021-10-19] MEDS: METOPROLOL SUCC 50MG EXT REL TAB PO SCH (07:26)
[2021-10-19] MEDS: PANTOprazole 40 MG TAB PO SCH (07:27)
[2021-10-19] MEDS: ATORVASTATIN 40 MG TAB PO SCH (07:27)
[2021-10-19] MEDS: INSULIN ASPART PER UNIT SC SCH ×4 (07:39→20:52)
[2021-10-19] MEDS ORDERED: BUPIVACAINE 0.5 % 5 MG/1 ML PF 10ML VIAL ONE ×2 (07:40→11:46)
[2021-10-19 07:42] LABS: Estimated Average Glucose 192 mg/dl; Hemoglobin A1C 8.3 % (4.5-5.6)
[2021-10-19] MEDS: MoRPHine SULFATE 2 MG/ML CARP IV PRN ×3 (07:43→18:02)
--- NOTE | 2021-10-19 08:50 | Orthopedic Progress Note ---
Date of Service October 19, 2021 Assessment & Plan (1) Closed fracture of left hip: NPO. Plan for left hip cemented bipolar hemiarthroplasty today with Dr. Medina. Procedure explained including risks, benefits, and alternatives. Consent obtained. Subjective .86 year old female with left hip fracture. She has times when this is pretty painful for her. No other orthopedic complaints. Review of Systems All systems reviewed & are unremarkable except as noted in HPI & below. Physical Exam . alert and oriented. NAD Left leg: ecchymosis around lateral thigh. Leg is shortened and externally rotated. Able to move toes, dorsiflex/plantar flex appropriately. Results & Data Results & Data Laboratory Results . Diagnostic Findings . PG Care Time/CCT Total # of Minutes Spent Total Time Spent with Patient: Total time spent is greater than 50% in coordination of care (as documented) at patient's floor/unit and/or counseling patient: Coding Level of Care Code 36479 Post Operative Follow-Up Diagnoses Closed fracture of left hip S72.002A Encounter type: initial encounter (1) Closed fracture of left hip Encounter type: initial encounter Qualified Code(s): S72.002A - Fracture of unspecified part of neck of left femur, initial encounter for closed fracture
--- NOTE | 2021-10-19 10:14 | History & Physical Bridge Note ---
Date of Service October 19, 2021 History & Physical Bridge Note I have examined the patient, reviewed the History & Physical and in the interval since the performance of the History & Physical I have noted the following changes of clinical significance: no changes noted
[2021-10-19] MEDS: ONDANSETRON INJ 2 MG/ML 2 ML VIAL IV PRN ×2 (11:47→18:02)
[2021-10-19] MEDS ORDERED: fentaNYL citrate 100 MCG/2 ML VIAL IV PRN (12:27)
[2021-10-19] MEDS ORDERED: ATROPINE SULFATE 0.1 MG/ML 10ML SYR IV PRN (12:27)
[2021-10-19] MEDS ORDERED: ONDANSETRON INJ 2 MG/ML 2 ML VIAL IV PRN (12:27)
[2021-10-19] MEDS ORDERED: ePHEDrine sulfate 50 MG/ML AMP IV PRN (12:27)
[2021-10-19] MEDS ORDERED: fentaNYL citrate 100 MCG/2 ML VIAL ONE (12:48)
[2021-10-19] MEDS ORDERED: BUPIVACAINE/EPINEPHRINE 0.25% 1:200,000 30 ML VIAL ONE (12:53)
[2021-10-19] MEDS ORDERED: THROMBIN FOR SOLN 20000 UNIT KIT ONE (12:53)
--- NOTE | 2021-10-19 13:35 | Hospitalist Progress Note ---
Date of Service October 19, 2021 Assessment & Plan (1) Fracture of femoral neck, left: Plan: Patient presenting from home after a mechanical fall In the ED, imaging shows impacted left femoral neck fracture Ortho consulted Plan to undergo left hip cemented bipolar hemiarthroplasty today by Dr. Medina Patient remains n.p.o. Pain control & and bowel regimen PT/OT when appropriate EKG and CXR reviewed. Patient denies any recent cardiopulmonary symptoms. (2) Hypoxia: Plan: 88% on room air after IV pain medications Saturating well on 2L CXR clear Incentive spirometry encouraged Wean O2 as able, likely in setting of pain (3) CAD (coronary artery disease): Plan: Remote history of CABG in 2001 Appears stable, no reports of chest pain, EKG without acute ST changes Resume ASA at the discretion of Ortho Continue statin, beta-velia (4) HTN (hypertension): Plan: BP elevated likely secondary to pain Continue metoprolol, ramipril, amlodipine (5) DM type 2 (diabetes mellitus, type 2): Plan: a1c 8.3 10/19/21 Hold oral agents and utilize NovoLog per protocol while hospitalized BSG 154, adequate (6) DVT prophylaxis: Plan: SCDs for now Dispo: med/surg, will need PT/OT post op and likely rehab Pt was seen and examined in collaboration with Dr. Hong, please see addendum Admission and Anticipated Discharge Date Admission Date: October 18, 2021 Supervising Physician Co-Signing Physician Notes 86-year-old female with PMH of DM type II, CAD s/p CABG in 2001, HTN, DM type II who presented to the ED 10/18 after tripping over left side, mechanical fall, no nausea/dizziness/palpitations/sweating/warmth/loss of consciousness surrounding fall. Patient found to have left femoral neck fracture, for surgery is patient. Patient also pain and elevated blood pressure likely related. Caution with antihypertensive post operative period. Pain control, c/w home meds. GENERAL: Alert and oriented x3. NAD, on 2L. HEENT: No pallor, no icterus. Pupils equal, round and reactive to light. Oral mucosa moist. NECK: No JVD, no neck masses. HEART: S1 and S2 heard. Regular rate and rhythm. No murmur, no gallop. RESPIRATORY SYSTEM: Normal AP diameter. No accessory muscle use. No wheezing, no crackles. ABDOMEN: Soft, bowel sounds present, nontender, no distention. CENTRAL NERVOUS SYSTEM: No facial droop. Speech is clear. Obeys simple commands. Moves extremities. EXTREMITIES: No edema, no erythema seen. LLE with intact distal NV status, left hip with approx 7x5 cm bruise. I have seen and examined the patient and have discussed the case with the provider above. I agree with the assessment and plan as stated. Subjective Patient was seen and examined in room 383-1. Follow-up left hip fracture. She complains of pain in her left hip, 8 out of 10. Pain is worse with movement. She denies fever, chills, sweats, lightheadedness, dizziness, chest pain, shortness of breath, nausea, vomiting, abdominal pain. Bravo catheter in place. She has been n.p.o. since midnight with anticipation of surgery today. Review of Systems Review of Systems: All systems reviewed & are unremarkable except as noted in HPI & below Physical Exam Physical Exam: Gen: WD/WN, thin, petite, elderly female NAD, A&O x3 to basics only, knew she was in hospital, but thought she was [place] HEENT: Normocephalic, atraumatic, conjunctivae moist, sclerae anicteric, mucous membranes moist. Lung: Clear to Auscultation bilaterally, no wheezes/rales/rhonchi Heart: Regular rate, regular rhythm, no murmurs, rubs, or gallops Abdomen: Soft, NT, ND +BS x 4 Extremities: No edema Skin: Warm, no rash, negative turgor. Results & Data Results & Data ([facility]) Vital Signs (Past 12 Hours) Vital Signs Temp Pulse Resp BP BP Pulse Ox 10/19/21 12:48 36.9 C 86 18 164/92 H 98 10/19/21 11:42 36.5 C 85 19 153/80 H 98 10/19/21 07:32 36.5 C 92 H 19 146/81 H 95 10/19/21 02:30 97 Laboratory Results Short CBC 10/18/21 10/19/21 Range/Units 13:30 05:27 WBC 6.91 10.90 H (4.8-10.8) K/uL Hgb 14.5 14.0 (12.0-16.0) g/dL Hct 41.9 39.5 (37-47) % Plt Count 238 182 (130-400) K/uL BMP 10/18/21 10/19/21 13:30 05:27 Sodium 137 135 L Potassium 3.5 3.7 Chloride 101 99 Carbon Dioxide 28 28 BUN 18 17 Creatinine 0.75 0.63 Glucose 195 H 152 H Calcium 8.6 9.2 Liver Function 10/18/21 Range/Units 13:30 Total Bilirubin 0.6 (0.2-1.0) mg/dl AST 22 (13-39) U/L ALT 24 (7-52) U/L Alkaline Phosphatase 73 (34-104) U/L Albumin 4.2 (3.4-5.0) gm/dl Urine 10/18/21 Range/Units 14:03 Urine Color [place] Urine Appearance Clear (Clear) Urine pH 7.5 (4.5-7.5) Ur Specific [place] 1.013 (1.000-1.030) Urine Protein Negative (Negative) Urine Glucose (UA) Trace H (Negative) Medications Administered Current Inpatient Medications Acetaminophen (Acetaminophen 325 Mg Tab) 650 mg PO Q8 ZIGGY Stop: 11/17/21 17:29 Last Admin: 10/19/21 05:33 Dose: 650 mg Documented by: Amlodipine Besylate (Amlodipine Besylate 5 Mg Tab) 2.5 mg PO DAILY ZIGGY Stop: 11/18/21 08:59 Last Admin: 10/19/21 07:24 Dose: 2.5 mg Documented by: Atorvastatin Calcium (Atorvastatin 40 Mg Tab) 80 mg PO DAILY ZIGGY Stop: 11/18/21 08:59 Last Admin: 10/19/21 07:27 Dose: 80 mg Documented by: Atropine Sulfate (Atropine Sulfate 0.1 Mg/Ml 10ml Syr) 0.5 mg IV Q1M PRN PRN Reason: PACU Use-HR<40 &/or Bradycardi Stop: 10/19/21 20:27 Bisacodyl (Bisacodyl 10 Mg Supp) 10 mg [place] DAILY PRN PRN Reason: Constipation Stop: 11/17/21 17:01 Dextrose (Dextrose 50% 50 Ml Syringe) 25 - 50 ml IV UD PRN; Protocol PRN Reason: Hypoglycemia Protocol Stop: 11/17/21 17:01 Enalapril Maleate (Enalapril Maleate 10 Mg Tab) 40 mg PO DAILY [facility]; Protocol Stop: 11/18/21 08:59 Last Admin: 10/19/21 07:24 Dose: 40 mg Documented by: Ephedrine Sulfate (Ephedrine Sulfate 50 Mg/Ml Amp) 5 mg IV Q5M PRN PRN Reason: PACU Use Only-SBP<90 mmHg Stop: 10/19/21 20:27 Fentanyl Citrate (Fentanyl Citrate 100 Mcg/2 Ml Vial) 25 mcg IV Q5M PRN PRN Reason: PACU Use Only-Pain Stop: 10/19/21 20:27 Glucagon (Glucagon For Inj 1 Mg Vial) 1 mg SQ UD PRN; Protocol PRN Reason: Hypoglycemia Protocol Stop: 11/17/21 17:01 Glucose (Glucose 10 Tabs/Tube) 4 - 8 tabs PO UD PRN; Protocol PRN Reason: Hypoglycemia Protocol Stop: 11/17/21 17:01 Glucose (Glucose 40% Gel 15 Gm Tube) 15 - 30 gm PO UD PRN; Protocol PRN Reason: Hypoglycemia Protocol Stop: 11/17/21 17:01 Tranexamic Acid (Tranexamic Acid / 0.7% Nacl) 1,000 mg in 100 mls @ 600 mls/hr IV TODAY@06 [facility] Stop: 10/19/21 18:00 Tranexamic Acid (Tranexamic Acid / 0.7% Nacl) 1,000 mg in 100 mls @ 600 mls/hr IV TODAY@0630 [facility] Stop: 10/19/21 18:00 Cefazolin Sodium (Ancef 2000mg) 2,000 mg in 15 mls @ 3.75 mls/min IV PREOP [facility]; Protocol Stop: 10/20/21 05:59 Insulin Aspart (Insulin Aspart Per Unit) 0 units SC ACHS [facility] Stop: 11/17/21 17:14 Last Admin: 10/19/21 13:01 Dose: Not Given Documented by: Magnesium Hydroxide (Magnesium Hydroxide Susp 30 Ml Udc) 30 ml PO DAILY PRN PRN Reason: Constipation Stop: 11/17/21 17:01 Metoprolol Succinate (Metoprolol Succ 50mg Ext Rel Tab) 50 mg PO DAILY [facility] Stop: 11/18/21 08:59 Last Admin: 10/19/21 07:26 Dose: 50 mg Documented by: Miscellaneous (Carbohydrates For Hypoglycemia ) 15 - 30 gm PO UD PRN PRN Reason: Hypoglycemia Protocol Stop: 11/17/21 17:01 Morphine Sulfate (Morphine Sulfate 2 Mg/Ml Carp) 2 mg IV Q3H PRN PRN Reason: Pain (1,2,3,4,5) & Pre PT Stop: 11/01/21 17:01 Last Admin: 10/19/21 11:47 Dose: 2 mg Documented by: Naloxone HCl (Naloxone Hcl 0.4 Mg/1 Ml Vial/Carp) 0.1 mg IV UD PRN PRN Reason: Opiate Overdose Stop: 11/17/21 17:01 Ondansetron HCl (Ondansetron Inj 2 Mg/Ml 2 Ml Vial) 4 mg IV Q6H PRN PRN Reason: Nausea And Vomiting Stop: 11/18/21 08:35 Last Admin: 10/19/21 11:47 Dose: 4 mg Documented by: Ondansetron HCl (Ondansetron Inj 2 Mg/Ml 2 Ml Vial) 4 mg IV ONCE PRN PRN Reason: PACU Use Only-Nausea/Vomiting Stop: 10/19/21 20:27 Pantoprazole Sodium (Pantoprazole 40 Mg Tab) 40 mg PO DAILY [facility]; Protocol Stop: 11/18/21 08:59 Last Admin: 10/19/21 07:27 Dose: 40 mg Documented by: Senna/Docusate Sodium (Docusate Sodium/Senna 50/8.6mg Tab) 2 tab PO HS ZIGGY Stop: 11/17/21 20:59 Last Admin: 10/18/21 21:04 Dose: 2 tab Documented by:
[2021-10-19] MEDS ORDERED: BUPIVACAINE 0.5 % 5 MG/1 ML MPF 30ML VIAL ONE (14:20)
[2021-10-19] MEDS ORDERED: EPINEPHrine INJ 1 MG/ML AMP ONE (14:20)
[2021-10-19] MEDS ORDERED: DEXAMETHASONE SOD INJ 4 MG/ML VIAL ONE (14:22)
[2021-10-19] MEDS ORDERED: PROPOFOL IV EMULSION 10 MG/ML 20 ML VIAL IV ONE (14:22)
[2021-10-19] MEDS ORDERED: LIDOCAINE 2% 2 ML VIAL/AMP(20MG/ML) INFIL ONE (14:22)
[2021-10-19] MEDS ORDERED: ONDANSETRON INJ 2 MG/ML 2 ML VIAL ONE (14:22)
[2021-10-19] MEDS ORDERED: PHENYLEPHRINE HCL 10 MG/ML VIAL ONE (14:22)
--- NOTE | 2021-10-19 15:46 | Operative Report ---
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 She had acute onset of pain and was unable to ambulate. She brought the emergency room where x-rays displaced femoral neck fracture. She was admitted by the medicine service, medically optimized, and indicated for surgical management. Description of Procedure Operative implants consist of: 1. Caitlyn size 11 LD/fracture femoral stem. 2. 0/28 mm metal articular ball. 3. 45 mm bipolar shell and liner. 4. Cement restrictor. 5. Distal femoral centralizer. The patient was taken to the operating, identified, placed on the operating table supine position protectors were properly padded. IV antibiotics tried by anesthesia team. A spinal anesthetic and been implemented. IV antibiotics were provided. The patient was then placed in the right lateral decubitus position. Axillary roll was placed. The left hip was then scrubbed with Hibiclens, prepped with ChloraPrep and draped in usual sterile fashion. A posterior lateral to the left hip was then performed through a curvilinear incision centered over the greater trochanter. Sharp dissection was carried through subcutaneous tissue down to level the IT band gluteal fascia the IT band gluteal fascia were incised longitudinally in line with skin incision. The underlying greater bursa was excised. The piriformis and external rotators were tagged and taken off the posterior aspect hip joint capsule. Great care was taken throughout the procedure protect the sciatic nerve at all times. A posterior capsulotomy was then performed leaving the some flap for later repair. Hip was internally rotated. Femoral neck osteotomy cut was made about a centimeter above the lesser trochanter. With the femoral neck and femoral head were removed and sent for pathology. The femur was retracted anteriorly. The acetabulum was sized to a size 45. Attention drawn the femur. The proximal femur was entered with a cookie-cutter followed by canal finder and lateralizing reamer. We then broached beginning with size 10 and progressing to 11. 11 fit nicely. We trialed the hip and the 0 length neck ball seem to recreate soft tissue tension appropriately and was fully stable in full extension and external rotation and flexion to 90 degrees internal rotation over [address]. We elect to place these implants. Leg lengths seemed equal. All trial implants were removed. A distal cement restrictor was placed. A double batch [place] G cement was mixed. This was then injected in the canal and a left size 11 LD/fracture femoral stem was placed. Once all cement hardened a +0/28 mm articular ball with a 45 mm bipolar shell and liner was placed. Hip was located once again found to be stable. Attention drawn toward closing. The wound was irrigated scopes also pulsatile lavage solution. We did inject locally with 30 cc of half percent Marcaine with epinephrine. The posterior capsule was then repaired with #2 Tycron suture in [id number] fashion. The hip external rotators and the piriformis were then reattached to the posterior aspect of the hip abductors with #2 Tycron suture. The IT band gluteal fascia then closed with #1 PDS suture in a running fashion. Subcutaneous tissue then closed with 2 layers the deep layer #1 Vicryl suture subcutaneous tissue with 2- 0 Dexon suture in a buried interrupted fashion the skin was closed skin ghassan. Leg was then cleaned and dried a sterile dressing was Xeroform, 4 x 4's, ABD pad, foam tape, were applied. The patient then transferred to the recovery room in stable condition. The patient tolerated the procedure well and there were no complications. Benson Beltrán, my physician community assistant, was present for the entire procedure. His assistance was essential and required for appropriate patient positioning, prepping and draping, surgical exposure, performing the technical details of the operation, placement the implants, closure of the wound, and placement of the sterile bandage. I attest to the content of the Intraoperative Record and any orders documented therein. Any exceptions are noted below.
--- NOTE | 2021-10-19 16:45 | Anesthesiology Progress Note ---
Date of Service October 19, 2021 Anesthesia Post Procedure Vital Signs Vital Signs: Temp Pulse Resp BP BP Pulse Ox 10/19/21 16:15 36.8 C 101 H 16 100/60 94 10/19/21 16:05 36.8 C 105 H 16 104/81 94 10/19/21 15:55 111 H 16 100/67 94 10/19/21 15:45 113 H 16 93/69 L 94 10/19/21 15:39 36.9 C 116 H 16 85/55 L 98 10/19/21 12:48 36.9 C 86 18 164/92 H 98 10/19/21 11:42 36.5 C 85 19 153/80 H 98 10/19/21 07:32 36.5 C 92 H 19 146/81 H 95 10/19/21 02:30 97 10/18/21 23:17 36.4 C L 81 16 142/78 H 98 10/18/21 17:03 36.4 C L 88 18 151/83 H 95 Pain Intensity Left Hip: Pain Intensity: 5 Transfer of Care Handoff Completed per policy Notes Mental Status: alert / awake / arousable Patient Amnestic to Procedure: Yes Nausea / Vomiting: adequately controlled Pain: adequately controlled Airway Patency, RR, SpO2: stable & adequate BP & HR: stable & adequate Hydration State: stable & adequate Anesthetic Complications: no major complications apparent
[2021-10-19] MEDS: SODIUM CHLORIDE 0.9% 1000ML 1,000 ML IV SCH (17:21)
[2021-10-19] MEDS: ASPIRIN 81 MG ECTAB PO SCH (20:30)
[2021-10-19] MEDS: DOCUSATE SODIUM/SENNA 50/8.6MG TAB PO SCH (20:31)
--- NOTE | 2021-10-19 21:12 | XRay Report ---
XR hip LT min 2V CLINICAL HISTORY: Post-Operative implant position. Left hip fracture. COMPARISON STUDY: Left hip 10/18/2021. FINDINGS: Status post left hip hemiarthroplasty. The hardware appears intact. No fracture or dislocat ion. Skin ghassan are in place. IMPRESSION: Status post left hip hemiarthroplasty. No evidence for hardware complication. ACT 112: Negative or not required by law. Electronically signed by: Obed Feliz M.D. 10/19/2021 9:11 PM
[2021-10-20] MEDS: SODIUM CHLORIDE 0.9% 1000ML 1,000 ML IV SCH ×2 (00:47→14:43)
[2021-10-20] MEDS ORDERED: OLANZapine 10 MG/2.1 ML SDV IM PRN (01:57)
[2021-10-20] MEDS ORDERED: OLANZapine 10 MG/2.1 ML SDV IM STA (01:57)
[2021-10-20] MEDS ORDERED: ACETAMINOPHEN 65 ML IV ONE (02:15)
[2021-10-20 02:48] LABS: Basophils # (auto) 0.01 K/uL (0-0.2); Basophils % (auto) 0.1 %; Hematocrit (blood only) 37.2 % (37-47); Hemoglobin 12.8 g/dL (12.0-16.0); Immature Granulocytes # (auto) 0.02 K/uL (0.00-0.02); Immature Granulocytes % (auto) 0.1 %; Lymphocytes # (auto) 0.81 K/uL (1.2-3.4); Lymphocytes % (auto) 5.2 %; Mean Corpuscular Hemoglobin 31.3 pg (25-34); Mean Corpuscular Hgb Conc 34.4 g/dL (32-36); Mean Platelet Volume 9.5 fL (7.4-10.4); Monocytes # (auto) 0.65 K/uL (0.11-0.59); Monocytes % (auto) 4.2 %; Neutrophils # (auto) 14.09 K/uL (1.4-6.5); Neutrophils % (auto) 90.4 %; Platelet Count 214 K/uL (130-400); RDW Coefficient of Variation 14.4 % (11.5-14.5); RDW Standard Deviation 48.1 fL (36.4-46.3); Red Blood Count 4.09 M/uL (4.2-5.4); White Blood Count 15.58 K/uL (4.8-10.8)
[2021-10-20 03:11] LABS: BUN Creatinine Ratio 29.6 (10-20); Calcium 8.8 mg/dl (8.5-10.1); Creatinine Clr Calc Pharmacy 38.3 ml/min; Est GFR (African American) 76.2 ml/min; Est GFR (Non-African American) 65.8 ml/min; Magnesium 1.2 mg/dl (1.7-2.4)
[2021-10-20 04:32] LABS: Appearance Urine Clear (Clear); Bilirubin Urine Negative (Negative); Blood Urine 2+ (Negative); Color Urine Yellow; Epithelial Cell Urine Auto >30 /lpf (0-5); Glucose Urine UA Negative (Negative); Ketones Urine 1+ (Negative); Leukocyte Esterase Urine Negative (Negative); Nitrite Urine Negative (Negative); Protein Urine 1+ (Negative); Specific Gravity Urine 1.031 (1.000-1.030); Urobilinogen Urine Negative (Negative); pH Urine 5.5 (4.5-7.5)
[2021-10-20 05:35] LABS: Calcium Oxalate Crystals Urine Present (None Prsent)
[2021-10-20] MEDS: ACETAMINOPHEN 325 MG TAB PO SCH (05:35)
[2021-10-20 05:37] LABS: Bacteria Urine Automated 1+ (Negative); Mucus Urine Present (None Prsent)
[2021-10-20] MEDS: MAGNESIUM SULFATE / D5W 1 GM/100 ML BAG IV SCH ×2 (07:57→11:25)
[2021-10-20] MEDS: INSULIN ASPART PER UNIT SC SCH ×4 (09:36→21:25)
[2021-10-20] MEDS: ENALAPRIL MALEATE 10 MG TAB PO SCH (09:36)
[2021-10-20] MEDS: ASPIRIN 81 MG ECTAB PO SCH ×2 (09:55→21:21)
[2021-10-20] MEDS: ATORVASTATIN 40 MG TAB PO SCH (09:55)
[2021-10-20] MEDS: METOPROLOL SUCC 50MG EXT REL TAB PO SCH (09:56)
[2021-10-20] MEDS: MAGNESIUM OXIDE 400 MG TAB PO SCH ×2 (09:56→21:21)
[2021-10-20] MEDS: PANTOprazole 40 MG TAB PO SCH (09:56)
--- NOTE | 2021-10-20 10:14 | XRay Report ---
XR chest 1V portable CLINICAL HISTORY: hypoxia, sirs COMPARISON STUDY: Chest radiograph October 18, 2021. FINDINGS: Patient is rotated. There are median sternotomy wires. Cardiac size is within normal limits . There is no pneumothorax or pleural effusion. No consolidation is identified. There is no evidence for pulmonary edema. IMPRESSION: No acute cardiopulmonary findings. ACT 112: Negative or not required by law. Electronically signed by: Jax Dixon M.D. 10/20/2021 10:13 AM
[2021-10-20] MEDS: cefTRIAXone SODIUM 1,000 MG in DEXTROSE 5% 50 ML IV SCH (10:22)
--- NOTE | 2021-10-20 11:16 | Hospitalist Progress Note ---
Date of Service October 20, 2021 Assessment & Plan (1) Fracture of femoral neck, left: Plan: Patient presenting from home after a mechanical fall In the ED, imaging shows impacted left femoral neck fracture Ortho consulted S/P left hip cemented bipolar hemiarthroplasty by Dr. Medina, POD #1 Pain control & and bowel regimen PT/OT when appropriate schedule IV tylenol for next 48 hours, try to eliminate narcotics as will worsen delirium Vit D 34.2 Post operative hospital delirium likely 2/2 to hospital setting, anesthesia Possible underlying infection, refer to below Scheduled Tylenol, try to avoid IV narcotics if able SIRS Patient meets criteria for SIRS secondary to tachycardia and leukocytosis Cytosis may very well be reactive in setting of postop state Chest x-ray negative for infection blood Cultures ordered Urine culture pending Initiated on 1 g IV Rocephin empirically until infection entirely ruled out continue IVF through 10/21 @ 1200 and re evaluated Hypomagnesemia mag 1.2 give 1g mag sulfate x 2 repeat mag at 1500 oral mag ordered; however unable to give due to delirious state (2) Hypoxia: Plan: 88% on room air after IV pain medications Saturating well on 2L CXR clear Incentive spirometry encouraged Wean O2 as able, likely in setting of pain (3) CAD (coronary artery disease): Plan: Remote history of CABG in 2001 Appears stable, no reports of chest pain, EKG without acute ST changes Resume ASA at the discretion of Ortho Continue statin, beta-velia (4) HTN (hypertension): Plan: BP normalized Continue metoprolol ramipril, amlodipine now on hold due to lower blood pressure (5) DM type 2 (diabetes mellitus, type 2): Plan: a1c 8.3 10/19/21 Hold oral agents and utilize NovoLog per protocol while hospitalized BSG 154, adequate (6) DVT prophylaxis: Plan: SCDs for now Dispo: med/surg, will need PT/OT post op and likely rehab Pt was seen and examined in collaboration with Dr. Hong, please see addendum Admission and Anticipated Discharge Date Admission Date: October 18, 2021 Supervising Physician Co-Signing Physician Notes 86-year-old female with PMH of DM type II, CAD s/p CABG in 2001, HTN, DM type II who presented to the ED 10/18 after tripping over left side, mechanical fall, no nausea/dizziness/palpitations/sweating/warmth/loss of consciousness surrounding fall. Patient found to have left femoral neck fracture, s/p repair on 10/19; pt more drowsy today likely 2/2 operative status and pain meds on background of hospitalization and old age. Patient also pain and elevated blood pressure likely related. Caution with antihypertensive post operative period. Na slightly low, likely 2/2 decreased PO intake, expect to improve w/ diet, will continue to monitor. Pain control, c/w home meds. GENERAL: Drowsy and oriented x2. NAD, on 2L. HEENT: No pallor, no icterus. Pupils equal, round and reactive to light. Oral mucosa moist. NECK: No JVD, no neck masses. HEART: S1 and S2 heard. Regular rate and rhythm. No murmur, no gallop. RESPIRATORY SYSTEM: Normal AP diameter. No accessory muscle use. No wheezing, no crackles. ABDOMEN: Soft, bowel sounds present, nontender, no distention. CENTRAL NERVOUS SYSTEM: No facial droop. Speech is clear. Obeys simple commands. Moves extremities. EXTREMITIES: No edema, no erythema seen. LLE with intact distal NV status, left hip with Clean dressing w/o soakage. I have seen and examined the patient and have discussed the case with the provider above. I agree with the assessment and plan as stated. Subjective Patient was seen and examined in room 383-1. Follow-up left hip fracture s/p repair, POD #1. Pt is more confused today, but alert. ROS unobtainable due to cognition. Nursing report safety with swallowing concerns due to confusion. Review of Systems Review of Systems: Unobtainable due to cognitive status Physical Exam Physical Exam: Gen: WD/WN, thin, petite, elderly female NAD, A&O x1 only today HEENT: Normocephalic, atraumatic, conjunctivae moist, sclerae anicteric, mucous membranes moist. Lung: Clear to Auscultation bilaterally, no wheezes/rales/rhonchi Heart: Regular rate, regular rhythm, no murmurs, rubs, or gallops Abdomen: Soft, NT, ND +BS x 4 Extremities: No edema, LLE dressing cdi Skin: Warm, no rash, negative turgor. Results & Data Results & Data ([facility]) Vital Signs (Past 12 Hours) Vital Signs Temp Pulse Resp BP Pulse Ox 10/20/21 08:00 36.7 C 114 H 22 118/77 93 10/20/21 03:36 37.5 C 108 H 20 140/74 93 10/20/21 01:16 98 H 19 129/76 2 L Laboratory Results Short CBC 10/20/21 Range/Units 02:21 WBC 15.58 H (4.8-10.8) K/uL Hgb 12.8 (12.0-16.0) g/dL Hct 37.2 (37-47) % Plt Count 214 (130-400) K/uL BMP 10/20/21 02:21 Sodium 133 L Potassium 4.0 Chloride 97 L Carbon Dioxide 26 BUN 24 H Creatinine 0.81 Glucose 209 H Calcium 8.8 Urine 10/20/21 Range/Units 04:00 Urine Color Yellow Urine Appearance Clear (Clear) Urine pH 5.5 (4.5-7.5) Ur Specific [place] 1.031 H (1.000-1.030) Urine Protein 1+ H (Negative) Urine Glucose (UA) Negative (Negative) Diagnostic Findings Chest X-Ray 10/20/21 09:10 XR chest 1V portable CLINICAL HISTORY: hypoxia, sirs COMPARISON STUDY: Chest radiograph October 18, 2021. FINDINGS: Patient is rotated. There are median sternotomy wires. Cardiac size is within normal limits. There is no pneumothorax or pleural effusion. No consolidation is identified. There is no evidence for pulmonary edema. IMPRESSION: No acute cardiopulmonary findings. ACT 112: Negative or not required by law. Electronically signed by: Jax Dixon M.D. 10/20/2021 10:13 AM Medications Administered Current Inpatient Medications Acetaminophen (Acetaminophen 325 Mg Tab) 650 mg PO Q8 ZIGGY Stop: 11/17/21 17:29 Last Admin: 10/20/21 05:35 Dose: Not Given Documented by: Amlodipine Besylate (Amlodipine Besylate 5 Mg Tab) 2.5 mg PO DAILY ZIGGY Stop: 11/18/21 08:59 Last Admin: 10/19/21 07:24 Dose: 2.5 mg Documented by: Aspirin (Aspirin 81 Mg Ectab) 81 mg PO BID ZIGGY Stop: 11/18/21 20:59 Last Admin: 10/20/21 09:55 Dose: Not Given Documented by: Atorvastatin Calcium (Atorvastatin 40 Mg Tab) 80 mg PO DAILY ZIGGY Stop: 11/18/21 08:59 Last Admin: 10/20/21 09:55 Dose: Not Given Documented by: Bisacodyl (Bisacodyl 10 Mg Supp) 10 mg [place] DAILY PRN PRN Reason: Constipation Stop: 11/17/21 17:01 Dextrose (Dextrose 50% 50 Ml Syringe) 25 - 50 ml IV UD PRN; Protocol PRN Reason: Hypoglycemia Protocol Stop: 11/17/21 17:01 Enalapril Maleate (Enalapril Maleate 10 Mg Tab) 40 mg PO DAILY [facility]; Protocol Stop: 11/18/21 08:59 Last Admin: 10/20/21 09:36 Dose: Not Given Documented by: Glucagon (Glucagon For Inj 1 Mg Vial) 1 mg SQ UD PRN; Protocol PRN Reason: Hypoglycemia Protocol Stop: 11/17/21 17:01 Glucose (Glucose 10 Tabs/Tube) 4 - 8 tabs PO UD PRN; Protocol PRN Reason: Hypoglycemia Protocol Stop: 11/17/21 17:01 Glucose (Glucose 40% Gel 15 Gm Tube) 15 - 30 gm PO UD PRN; Protocol PRN Reason: Hypoglycemia Protocol Stop: 11/17/21 17:01 Sodium Chloride (Nss 1000ml) 1,000 mls @ 80 mls/hr IV .[id number] [facility] Stop: 10/20/21 17:53 Last Admin: 10/20/21 00:47 Dose: 80 mls/hr Documented by: Ceftriaxone Sodium 1,000 mg/ (Dextrose) 50 mls @ 100 mls/hr IV Q24H [facility]; Protocol Stop: 10/25/21 07:59 Last Infusion: 10/20/21 11:09 Dose: Infused Documented by: Magnesium Sulfate/Dextrose (Magnesium Sulfate / D5w) 1 gm in 100 mls @ 50 mls/hr IV Q2H [facility] Stop: 10/20/21 11:44 Last Infusion: 10/20/21 10:22 Dose: Infused Documented by: Insulin Aspart (Insulin Aspart Per Unit) 0 units SC ACHS [facility] Stop: 11/17/21 17:14 Last Admin: 10/20/21 09:36 Dose: Not Given Documented by: Magnesium Hydroxide (Magnesium Hydroxide Susp 30 Ml Udc) 30 ml PO DAILY PRN PRN Reason: Constipation Stop: 11/17/21 17:01 Magnesium Oxide (Magnesium Oxide 400 Mg Tab) 400 mg PO BID [facility] Stop: 11/19/21 08:59 Last Admin: 10/20/21 09:56 Dose: Not Given Documented by: Metoprolol Succinate (Metoprolol Succ 50mg Ext Rel Tab) 50 mg PO DAILY [facility] Stop: 11/18/21 08:59 Last Admin: 10/20/21 09:56 Dose: Not Given Documented by: Miscellaneous (Carbohydrates For Hypoglycemia ) 15 - 30 gm PO UD PRN PRN Reason: Hypoglycemia Protocol Stop: 11/17/21 17:01 Morphine Sulfate (Morphine Sulfate 2 Mg/Ml Carp) 2 mg IV Q3H PRN PRN Reason: Pain (1,2,3,4,5) & Pre PT Stop: 11/01/21 17:01 Last Admin: 10/19/21 18:02 Dose: 2 mg Documented by: Naloxone HCl (Naloxone Hcl 0.4 Mg/1 Ml Vial/Carp) 0.1 mg IV UD PRN PRN Reason: Opiate Overdose Stop: 11/17/21 17:01 Olanzapine (Olanzapine 10 Mg/2.1 Ml Sdv) 2.5 mg IM Q4H PRN PRN Reason: Anxiety/Agitation Stop: 11/19/21 01:56 Ondansetron HCl (Ondansetron Inj 2 Mg/Ml 2 Ml Vial) 4 mg IV Q6H PRN PRN Reason: Nausea And Vomiting Stop: 11/18/21 08:35 Last Admin: 10/19/21 18:02 Dose: 4 mg Documented by: Pantoprazole Sodium (Pantoprazole 40 Mg Tab) 40 mg PO DAILY [facility]; Protocol Stop: 11/18/21 08:59 Last Admin: 10/20/21 09:56 Dose: Not Given Documented by: Polyethylene Glycol (Polyethylene (Miralax) 17 Gm Pack) 17 gm PO Q6 [facility] Stop: 11/20/21 17:59 Senna/Docusate Sodium (Docusate Sodium/Senna 50/8.6mg Tab) 2 tab PO HS [facility] Stop: 11/17/21 20:59 Last Admin: 10/19/21 20:31 Dose: 2 tab Documented by:
[2021-10-20] MEDS: ACETAMINOPHEN 65 ML IV SCH ×2 (13:44→21:13)
--- NOTE | 2021-10-20 13:55 | Progress Notes ---
DATE OF SERVICE: 10/20/2021. SUBJECTIVE: An 86-year-old white female now postoperative day 1 from a left cemented bipolar hip art hroplasty for fracture. She is doing okay. She is sitting up in her bedside chair. Really seems a bit confused today. Does not really follow commands well. OBJECTIVE: VITAL SIGNS: Temperature 37.0. Vital signs are stable. PHYSICAL EXAMINATION: GENERAL: Shows a cachectic elderly, frail female, now sitting up in chair. She does not really resp ond much to commands today. EXTREMITIES: Examination of left hip reveals the dressing to be clean, dry and intact. Leg lengths are equal. Hip is located. Difficult to assess neurological function as she does not follow command s currently. LABORATORY DATA: Hemoglobin is 12.8. Hematocrit 37.2. White cell count is elevated at 15.58. Elec trolytes are stable. ASSESSMENT: An 86-year-old white female postoperative day 1 from a left cemented bipolar hip arthrop lasty for fracture. She seems to be doing okay orthopedically but certainly a bit confused. Certain ly multiple etiologies for this. She appears stable from the physiologic standpoint. PLAN: 1. DVT prophylaxis includes thigh-high TEDs, SCDs, and aspirin twice a day for 6 weeks. 2. PT/OT. She can weight bear as tolerated in the left lower extremity. She needs to obey hip prec autions. 3. Pain control. Hold all narcotic pain medicines until any confusion is resolved. 4. Medical management as per the medicine service. 5. Disposition: She is orthopedically okay for discharge any time medically stable. I need to see her back 2 to 3 weeks out from surgery date. Any orthopedic questions can be directed to me at [phone]. Job ID: [id number]
[2021-10-20] MEDS: DOCUSATE SODIUM/SENNA 50/8.6MG TAB PO SCH (21:21)
[2021-10-21] MEDS: SODIUM CHLORIDE 0.9% 1000ML 1,000 ML IV SCH (03:04)
[2021-10-21] MEDS: ACETAMINOPHEN 65 ML IV SCH ×3 (04:00→20:40)
[2021-10-21 07:07] LABS: Basophils # (auto) 0.01 K/uL (0-0.2); Basophils % (auto) 0.1 %; Eosinophils # (auto) 0.07 K/uL (0-0.5); Eosinophils % (auto) 0.6 %; Hematocrit (blood only) 31.5 % (37-47); Hemoglobin 10.7 g/dL (12.0-16.0); Immature Granulocytes # (auto) 0.02 K/uL (0.00-0.02); Immature Granulocytes % (auto) 0.2 %; Lymphocytes # (auto) 0.65 K/uL (1.2-3.4); Lymphocytes % (auto) 5.8 %; Mean Corpuscular Hemoglobin 31.3 pg (25-34); Mean Corpuscular Volume 92.1 fL (80-100); Mean Platelet Volume 9.7 fL (7.4-10.4); Monocytes # (auto) 0.93 K/uL (0.11-0.59); Monocytes % (auto) 8.3 %; Neutrophils # (auto) 9.49 K/uL (1.4-6.5); Platelet Count 162 K/uL (130-400); RDW Coefficient of Variation 14.8 % (11.5-14.5); RDW Standard Deviation 49.8 fL (36.4-46.3); Red Blood Count 3.42 M/uL (4.2-5.4); White Blood Count 11.17 K/uL (4.8-10.8)
[2021-10-21 07:38] LABS: Albumin Globulin Ratio 1.5 (0.9-2); BUN Creatinine Ratio 33.8 (10-20); Bilirubin,Total 0.5 mg/dl (0.2-1.0); Calcium 8.3 mg/dl (8.5-10.1); Creatinine Clr Calc Pharmacy 45.6 ml/min; Est GFR (African American) 91.8 ml/min; Est GFR (Non-African American) 79.2 ml/min; Magnesium 1.9 mg/dl (1.7-2.4); Potassium 3.8 mmol/L (3.5-5.1)
--- NOTE | 2021-10-21 07:48 | Progress Notes ---
DATE OF SERVICE: 10/21/2021. SUBJECTIVE: An 86-year-old white female postop day 2 from left bipolar hip arthroplasty for fracture . She has been somewhat confused since surgery. She is lying in bed and resting comfortably this mo rning. OBJECTIVE: VITAL SIGNS: Temperature 36.7. Vital signs are stable. GENERAL: Physical examination shows a frail, elderly female. She is lying in bed. She is sound asl eep. A bit difficult to arouse. Her leg lengths are equal. Dressing is clean, dry and intact. NEUROLOGIC: She is neurologically intact. LABORATORY DATA: Hemoglobin 10.7. Hematocrit 31.5. Electrolytes are pending. ASSESSMENT: An 86-year-old white female postop day 2 from a left cemented bipolar hip arthroplasty, doing reasonably well. She appears fairly stable. She is a bit confused, but looks a little better today than yesterday. PLAN: 1. DVT prophylaxis includes thigh-high TEDs, SCDs, and aspirin twice a day for 6 weeks. 2. PT/OT. She can weight bear as tolerated. 3. Pain control, doing okay with current pain regimen. I would hold all narcotics until confusion c lears. 4. Disposition: She is orthopedically okay for discharge any time medically stable. I need to see her back two to three weeks out from surgery date. Any orthopedic questions can be directed to me at [phone]. Job ID: [id number]
[2021-10-21] MEDS: cefTRIAXone SODIUM 1,000 MG in DEXTROSE 5% 50 ML IV SCH (09:53)
[2021-10-21] MEDS: MAGNESIUM OXIDE 400 MG TAB PO SCH ×2 (09:56→20:41)
[2021-10-21] MEDS: ASPIRIN 81 MG ECTAB PO SCH ×2 (09:56→20:41)
[2021-10-21] MEDS: METOPROLOL SUCC 50MG EXT REL TAB PO SCH (09:56)
[2021-10-21] MEDS: ATORVASTATIN 40 MG TAB PO SCH (09:56)
[2021-10-21] MEDS: PANTOprazole 40 MG TAB PO SCH (09:57)
[2021-10-21] MEDS: INSULIN ASPART PER UNIT SC SCH ×4 (10:30→20:49)
[2021-10-21] MEDS: POLYETHYLENE (MIRALAX) 17 GM PACK PO SCH ×2 (17:42→22:16)
--- NOTE | 2021-10-21 18:27 | Hospitalist Progress Note ---
Date of Service October 21, 2021 Assessment & Plan (1) Fracture of femoral neck, left: Plan: Patient presenting from home after a mechanical fall In the ED, imaging shows impacted left femoral neck fracture Ortho consulted S/P left hip cemented bipolar hemiarthroplasty by Dr. Medina, POD #1 Pain control & and bowel regimen PT/OT IV tylenol, try to eliminate narcotics as will worsen delirium Vit D 34.2 Post operative hospital delirium likely 2/2 to hospital setting, anesthesia, hip fracture Possible underlying infection, refer to below Scheduled Tylenol, try to avoid IV narcotics if able SIRS Patient meets criteria for SIRS secondary to tachycardia and leukocytosis Cytosis may very well be reactive in setting of postop state Chest x-ray negative for infection blood Cultures NG24H Urine culture neg Initiated on 1 g IV Rocephin empirically ,will continue for total of 3 days (2) Hypoxia: Plan: 88% on room air after IV pain medications Saturating well on 2L CXR clear Incentive spirometry encouraged Wean O2 as able, likely in setting of pain (3) CAD (coronary artery disease): Plan: Remote history of CABG in 2001 Appears stable, no reports of chest pain, EKG without acute ST changes Resume ASA at the discretion of Ortho Continue statin, beta-velia (4) HTN (hypertension): Plan: BP normalized Continue metoprolol ramipril, amlodipine now on hold due to lower blood pressure (5) DM type 2 (diabetes mellitus, type 2): Plan: a1c 8.3 10/19/21 Hold oral agents and utilize NovoLog per protocol while hospitalized BSG 154, adequate (6) DVT prophylaxis: Plan: SCDs for now Dispo: med/surg, will need PT/OT post op and likely rehab Admission and Anticipated Discharge Date Admission Date: October 18, 2021 Subjective Pt seen and examined at bedside as f/u of Lt femoral neck # and post operative hospital delirium Pt improving, AOx3, working with PT, eating better per RN. NO BM. Reports pain under control. Denies headache/dizziness/chest pain/other ROS. Physical Exam Physical Exam: GENERAL: Alert and oriented x 3, NAD, on 2L. HEENT: No pallor, no icterus. Pupils equal, round and reactive to light. Oral mucosa moist. NECK: No JVD, no neck masses. HEART: S1 and S2 heard. Regular rate and rhythm. No murmur, no gallop. RESPIRATORY SYSTEM: Normal AP diameter. No accessory muscle use. No wheezing, no crackles. ABDOMEN: Soft, bowel sounds present, nontender, no distention. CENTRAL NERVOUS SYSTEM: No facial droop. Speech is clear. Obeys simple commands. Moves extremities. EXTREMITIES: No edema, no erythema seen. LLE with intact distal NV status, left hip with Clean dressing w/o soakage. Results & Data Results & Data ([facility]) Vital Signs (Past 12 Hours) Vital Signs Temp Pulse Resp BP Pulse Ox 10/21/21 15:36 36.9 C 99 H 18 109/70 99 10/21/21 08:03 36.3 C L 111 H 16 145/82 H 100
[2021-10-21] MEDS: DOCUSATE SODIUM/SENNA 50/8.6MG TAB PO SCH (20:41)
[2021-10-22] MEDS: ACETAMINOPHEN 65 ML IV SCH (04:11)
[2021-10-22 06:01] LABS: Hematocrit (blood only) 26.7 % (37-47); Mean Corpuscular Hemoglobin 30.9 pg (25-34); Mean Corpuscular Hgb Conc 33.7 g/dL (32-36); Mean Corpuscular Volume 91.8 fL (80-100); Mean Platelet Volume 9.6 fL (7.4-10.4); Platelet Count 157 K/uL (130-400); RDW Coefficient of Variation 14.7 % (11.5-14.5); RDW Standard Deviation 49.5 fL (36.4-46.3); Red Blood Count 2.91 M/uL (4.2-5.4); White Blood Count 10.26 K/uL (4.8-10.8)
[2021-10-22 06:36] LABS: Albumin Globulin Ratio 1.3 (0.9-2); Albumin Level 2.6 gm/dl (3.4-5.0); BUN Creatinine Ratio 40.4 (10-20); Bilirubin,Total 0.6 mg/dl (0.2-1.0); Calcium 7.7 mg/dl (8.5-10.1); Creatinine Clr Calc Pharmacy 65.9 ml/min; Est GFR (African American) 103.7 ml/min; Est GFR (Non-African American) 89.4 ml/min; Potassium 3.6 mmol/L (3.5-5.1); Total Protein 4.6 gm/dl (6.0-8.3)
[2021-10-22] MEDS: cefTRIAXone SODIUM 1,000 MG in DEXTROSE 5% 50 ML IV SCH (07:53)
[2021-10-22] MEDS: METOPROLOL SUCC 50MG EXT REL TAB PO SCH (07:54)
[2021-10-22] MEDS: PANTOprazole 40 MG TAB PO SCH (07:54)
[2021-10-22] MEDS: ASPIRIN 81 MG ECTAB PO SCH ×2 (07:54→21:05)
[2021-10-22] MEDS: MAGNESIUM OXIDE 400 MG TAB PO SCH ×2 (07:54→21:06)
[2021-10-22] MEDS: ATORVASTATIN 40 MG TAB PO SCH (07:54)
[2021-10-22] MEDS: INSULIN ASPART PER UNIT SC SCH ×4 (08:54→21:01)
[2021-10-22] MEDS ORDERED: ENALAPRIL MALEATE 10 MG TAB PO STA (09:24)
[2021-10-22] MEDS ORDERED: amLODIPine BESYLATE 5 MG TAB PO ONE (09:24)
[2021-10-22] MEDS ORDERED: METOPROLOL TARTRATE 25 MG TAB PO ONE (09:28)
--- NOTE | 2021-10-22 12:42 | Progress Notes ---
DATE OF SERVICE: 10/22/2021. SUBJECTIVE: An 86-year-old white female now postop day 3 from a left cemented bipolar hip arthroplas ty for fracture. She is doing much better today. Complaining only of some heel pain. No chest pain or shortness of breath. Not feeling dizzy or lightheaded. OBJECTIVE: VITAL SIGNS: Temperature 36.3. Vital signs are stable. GENERAL: Shows a pleasant, elderly female. She is lying in bed. She is awake, alert and oriented t tammy. EXTREMITIES: Examination of the left hip reveals leg lengths are equal. Dressing is clean, dry, and intact. She can dorsiflex and plantarflex her foot appropriately. She is neurologically intact. LABORATORY DATA: Hemoglobin 9.0. Hematocrit 26.7. Electrolytes are stable. ASSESSMENT: An 86-year-old white female postoperative day #3 from a left cemented bipolar hip arthro plasty, doing better. She is much more awake, alert. Not having much pain, but we do need to be car eful with heel precautions as she is having some heel pain. PLAN: 1. DVT prophylaxis includes thigh-high TEDs, SCDs, and a baby aspirin twice a day for 6 weeks. 2. PT/OT. She can weight bear as tolerated, left lower extremity. Needs to obey hip precautions. 3. Pain control, doing okay with current pain regimen. 4. Medical management as per the medicine service. 5. Disposition: She is orthopedically okay for discharge any time medically stable. I need to see her back two to three weeks out from surgery date. Any questions can be directed to me at [phone]. Job ID: [id number]
[2021-10-22] MEDS: ACETAMINOPHEN 325 MG TAB PO SCH ×2 (12:59→21:05)
--- NOTE | 2021-10-22 17:24 | Hospitalist Progress Note ---
Date of Service October 22, 2021 Assessment & Plan (1) Fracture of femoral neck, left: Plan: Patient presenting from home after a mechanical fall In the ED, imaging shows impacted left femoral neck fracture Ortho consulted S/P left hip cemented bipolar hemiarthroplasty by Dr. Medina, POD #2 Pain control & and bowel regimen PT/OT IV tylenol, try to eliminate narcotics as will worsen delirium Vit D 34.2 Pt will need OP ortho f/u Post operative hospital delirium likely 2/2 to hospital setting, anesthesia, hip fracture Possible underlying infection, refer to below Scheduled Tylenol, try to avoid IV narcotics if able Resolved SIRS Patient meets criteria for SIRS secondary to tachycardia and leukocytosis Cytosis may very well be reactive in setting of postop state Chest x-ray negative for infection blood Cultures NG24H Urine culture neg Initiated on 1 g IV Rocephin empirically ,will continue for total of 3 days (2) Hypoxia: Plan: 88% on room air after IV pain medications Saturating well on 2L CXR clear Incentive spirometry encouraged Wean O2 as able, likely in setting of pain (3) CAD (coronary artery disease): Plan: Remote history of CABG in 2001 Appears stable, no reports of chest pain, EKG without acute ST changes Resume ASA at the discretion of Ortho Continue statin, beta-velia (4) HTN (hypertension): Plan: BP normalized Continue metoprolol ramipril, amlodipine now on hold due to lower blood pressure (5) DM type 2 (diabetes mellitus, type 2): Plan: a1c 8.3 10/19/21 Hold oral agents and utilize NovoLog per protocol while hospitalized BSG 154, adequate (6) DVT prophylaxis: Plan: baby aspirin BID for 6 weeks per ORtho, then back to her daily dose. Dispo: med/surg, will need PT/OT post op and likely rehab Admission and Anticipated Discharge Date Admission Date: October 18, 2021 Subjective Pt seen and examined at bedside as f/u of Lt femoral neck # and post operative hospital delirium Pt improving, AOx3, working with PT, eating better per RN. NO BM. Reports pain under control. Denies headache/dizziness/chest pain/other ROS. Physical Exam Physical Exam: GENERAL: Alert and oriented x 3, NAD, on 2L. HEENT: No pallor, no icterus. Pupils equal, round and reactive to light. Oral mucosa moist. NECK: No JVD, no neck masses. HEART: S1 and S2 heard. Regular rate and rhythm. No murmur, no gallop. RESPIRATORY SYSTEM: Normal AP diameter. No accessory muscle use. No wheezing, no crackles. ABDOMEN: Soft, bowel sounds present, nontender, no distention. CENTRAL NERVOUS SYSTEM: No facial droop. Speech is clear. Obeys simple commands. Moves extremities. EXTREMITIES: No edema, no erythema seen. LLE with intact distal NV status, left hip with Clean dressing w/o soakage. Results & Data Results & Data ([facility]) Vital Signs (Past 12 Hours) Vital Signs Temp Pulse Resp BP Pulse Ox 10/22/21 15:50 36.5 C 110 H 16 103/66 91 10/22/21 11:32 94 H 130/69 10/22/21 09:39 127 H 128/68 10/22/21 07:10 36.3 C L 115 H 16 182/81 H 98
[2021-10-22] MEDS ORDERED: SODIUM CHLORIDE 0.65% NA SOLN 45 ML (OCEAN) ONE (18:04)
[2021-10-22] MEDS: DOCUSATE SODIUM/SENNA 50/8.6MG TAB PO SCH (21:06)
--- NOTE | 2021-10-22 22:31 | Electrocardiogram Report ---
Test Reason : Blood Pressure : / mmHG Vent. Rate : 115 BPM Atrial Rate : 115 BPM P-R Int : 118 ms QRS Dur : 080 ms QT Int : 324 ms P-R-T Axes : 077 070 053 degrees QTc Int : 448 ms Sinus tachycardia Anterior infarct (cited on or before 18-OCT-2021) Abnormal ECG When compared with ECG of 18-OCT-2021 13:54, T wave inversion no longer evident in Anterior leads Confirmed by Zack Subramanian ([id number]) on 10/22/2021 10:30:41 PM Referred By: REFERRED SELF Confirmed By:Zack Subramanian
[2021-10-22] MEDS: MoRPHine SULFATE 2 MG/ML CARP IV PRN (22:39)
[2021-10-23] MEDS: ACETAMINOPHEN 325 MG TAB PO SCH ×2 (06:16→13:17)
[2021-10-23 08:12] LABS: Hematocrit (blood only) 26.3 % (37-47); Mean Corpuscular Hemoglobin 31.1 pg (25-34); Mean Corpuscular Hgb Conc 34.2 g/dL (32-36); Mean Platelet Volume 9.8 fL (7.4-10.4); Platelet Count 178 K/uL (130-400); RDW Coefficient of Variation 14.6 % (11.5-14.5); RDW Standard Deviation 49.3 fL (36.4-46.3); Red Blood Count 2.89 M/uL (4.2-5.4); White Blood Count 7.28 K/uL (4.8-10.8)
[2021-10-23 08:31] LABS: BUN Creatinine Ratio 31.3 (10-20); Calcium 7.9 mg/dl (8.5-10.1); Creatinine Clr Calc Pharmacy 64.5 ml/min; Est GFR (African American) 102.9 ml/min; Est GFR (Non-African American) 88.8 ml/min; Magnesium 1.6 mg/dl (1.7-2.4); Potassium 3.8 mmol/L (3.5-5.1)
[2021-10-23] MEDS: amLODIPine BESYLATE 5 MG TAB PO SCH (08:45)
[2021-10-23] MEDS: MAGNESIUM OXIDE 400 MG TAB PO SCH (08:46)
[2021-10-23] MEDS: ENALAPRIL MALEATE 10 MG TAB PO SCH (08:46)
[2021-10-23] MEDS: PANTOprazole 40 MG TAB PO SCH (08:46)
[2021-10-23] MEDS: METOPROLOL SUCC 50MG EXT REL TAB PO SCH (08:46)
[2021-10-23] MEDS: ASPIRIN 81 MG ECTAB PO SCH (08:46)
[2021-10-23] MEDS: ATORVASTATIN 40 MG TAB PO SCH (08:47)
[2021-10-23] MEDS: cefTRIAXone SODIUM 1,000 MG in DEXTROSE 5% 50 ML IV SCH (08:47)
[2021-10-23] MEDS: INSULIN ASPART PER UNIT SC SCH ×2 (08:47→13:19)
--- NOTE | 2021-10-23 08:52 | Progress Notes ---
DATE OF SERVICE: 10/23/2021. SUBJECTIVE: An 86-year-old white female postop day 4 from left cemented bipolar hip arthroplasty for fracture. Seems to be doing okay. No particular pain this morning. Just kind of waking up. Still fairly groggy. Denies any other symptoms. OBJECTIVE: VITAL SIGNS: Temperature 37.0. Vital signs are stable. GENERAL: Reveals a frail, elderly female. She is lying in bed, looks reasonably comfortable. EXTREMITIES: Examination of the left hip reveals the dressing to be clean, dry and intact. Minimal swelling. Some slight bruising. Thigh is soft and supple. Leg lengths are equal. She is neurologi terra intact. LABORATORY DATA: Hemoglobin 9.0. Hematocrit 26.3. Electrolytes are stable. ASSESSMENT: An 86-year-old white female postop day 4 from a left bipolar hip arthroplasty for fractu re, doing reasonably well. She has made significant improvement the past 2 days. PLAN: 1. DVT prophylaxis includes thigh-high TEDs, SCDs, and a baby aspirin twice a day for 6 weeks. 2. PT/OT. She can weight bear as tolerated. Does need to obey hip precautions. 3. Pain control, doing okay with current pain regimen. 4. Medical management as per the medicine service. 5. Disposition: She is orthopedically okay for discharge any time medically stable. I need to see her back two to three weeks out from surgery date. Any orthopedic questions can be directed to me at [phone]. Job ID: [id number]
--- NOTE | 2021-10-23 12:22 | Hospitalist Progress Note ---
Date of Service October 23, 2021 Assessment & Plan (1) Fracture of femoral neck, left: Plan: Patient presenting from home after a mechanical fall Imaging shows impacted left femoral neck fracture Ortho consulted-appreciate input and recommendation S/P left hip cemented bipolar hemiarthroplasty by Dr. Medina, POD #3 Pain control & and bowel regimen PT/OT -has been ongoing and she will be going to [facility] this afternoon Will need Ortho appointment in about 2 to 3 weeks Post operative hospital delirium likely 2/2 to hospital setting, anesthesia, hip fracture Possible underlying infection, refer to below Scheduled Tylenol, try to avoid IV narcotics if able Resolved and no more issues SIRS Patient meets criteria for SIRS secondary to tachycardia and leukocytosis Cytosis may very well be reactive in setting of postop state Chest x-ray negative for infection blood Cultures NG24H Urine culture neg Initiated on 1 g IV Rocephin empirically ,will continue for total of 3 days Antibiotic course is done (2) Hypoxia: Plan: 88% on room air after IV pain medications Saturating well on 2L CXR clear Incentive spirometry encouraged Wean O2 as able, likely in setting of pain Has been saturating normally on room air (3) CAD (coronary artery disease): Plan: Remote history of CABG in 2001 Appears stable, no reports of chest pain, EKG without acute ST changes Resume ASA at the discretion of Ortho Continue statin, beta-velia Denies any cardiac symptoms (4) HTN (hypertension): Plan: BP normalized Continue metoprolol ramipril, amlodipine now on hold due to lower blood pressure (5) DM type 2 (diabetes mellitus, type 2): Plan: a1c 8.3 10/19/21 Hold oral agents and utilize NovoLog per protocol while hospitalized BSG 154, adequate We will go back to her usual medications on an outpatient (6) DVT prophylaxis: Plan: baby aspirin BID for 6 weeks per ORtho, then back to her daily dose. Dispo: med/surg, will need PT/OT post op and likely rehab She will be discharged to [facility] this afternoon Admission and Anticipated Discharge Date Admission Date: October 18, 2021 Subjective 10/23/2021 The patient was seen and examined in medical floor She has been feeling much better and denies any significant symptoms She has been getting physical therapy and is ready to be discharged today Review of Systems Review of Systems: All systems reviewed and are unremarkable except as noted below Musculoskeletal: Minimal pain involving the left Physical Exam Physical Exam: Sitting on a chair without any acute distress Constitutional: + thin; not ill appearing Eyes: PERRL, conjunctivae normal, anicteric sclerae ENMT: external ear and nose normal, oropharynx normal Neck: trachea midline, no thyromegaly Respiratory: no respiratory distress Auscultation: lungs clear to auscultation bilaterally Cardiovascular: Rate/Rhythm: regular rate and regular rhythm Heart Sounds: normal S1 and normal S2; no murmur Extremities: no edema Gastrointestinal (Abdomen): Inspection/Auscultation: normal bowel sounds; abdomen not distended Percussion/Palpation: abdomen soft; abdomen nontender Musculoskeletal: Minimal pain left lower extremity with movement of the left hip Neurologic: Alert, awake and oriented x3. Generally weak Results & Data Results & Data ([facility]) Vital Signs (Past 12 Hours) Vital Signs Temp Pulse Resp BP Pulse Ox 10/23/21 07:30 37 C 96 H 18 112/90 99 Laboratory Results Short CBC 10/23/21 Range/Units 07:55 WBC 7.28 (4.8-10.8) K/uL Hgb 9.0 L (12.0-16.0) g/dL Hct 26.3 L (37-47) % Plt Count 178 (130-400) K/uL BMP 10/23/21 07:55 Sodium 136 Potassium 3.8 Chloride 104 Carbon Dioxide 27 BUN 15 Creatinine 0.48 L Glucose 130 H Calcium 7.9 L Medications Administered Current Inpatient Medications Acetaminophen (Acetaminophen 325 Mg Tab) 650 mg PO Q8 ZIGGY Stop: 11/17/21 17:29 Last Admin: 10/23/21 06:16 Dose: 650 mg Documented by: Amlodipine Besylate (Amlodipine Besylate 5 Mg Tab) 2.5 mg PO DAILY ZIGGY Stop: 11/18/21 08:59 Last Admin: 10/23/21 08:45 Dose: 2.5 mg Documented by: Aspirin (Aspirin 81 Mg Ectab) 81 mg PO BID ZIGGY Stop: 11/18/21 20:59 Last Admin: 10/23/21 08:46 Dose: 81 mg Documented by: Atorvastatin Calcium (Atorvastatin 40 Mg Tab) 80 mg PO DAILY ZIGGY Stop: 11/18/21 08:59 Last Admin: 10/23/21 08:47 Dose: 80 mg Documented by: Bisacodyl (Bisacodyl 10 Mg Supp) 10 mg MN DAILY PRN PRN Reason: Constipation Stop: 11/17/21 17:01 Dextrose (Dextrose 50% 50 Ml Syringe) 25 - 50 ml IV UD PRN; Protocol PRN Reason: Hypoglycemia Protocol Stop: 11/17/21 17:01 Enalapril Maleate (Enalapril Maleate 10 Mg Tab) 40 mg PO DAILY ZIGGY; Protocol Stop: 11/18/21 08:59 Last Admin: 10/23/21 08:46 Dose: 40 mg Documented by: Glucagon (Glucagon For Inj 1 Mg Vial) 1 mg SQ UD PRN; Protocol PRN Reason: Hypoglycemia Protocol Stop: 11/17/21 17:01 Glucose (Glucose 10 Tabs/Tube) 4 - 8 tabs PO UD PRN; Protocol PRN Reason: Hypoglycemia Protocol Stop: 11/17/21 17:01 Glucose (Glucose 40% Gel 15 Gm Tube) 15 - 30 gm PO UD PRN; Protocol PRN Reason: Hypoglycemia Protocol Stop: 11/17/21 17:01 Ceftriaxone Sodium 1,000 mg/ (Dextrose) 50 mls @ 100 mls/hr IV Q24H ZIGGY; Protocol Stop: 10/25/21 07:59 Last Infusion: 10/23/21 09:25 Dose: Infused Documented by: Insulin Aspart (Insulin Aspart Per Unit) 0 units SC ACHS [facility] Stop: 11/17/21 17:14 Last Admin: 10/23/21 08:47 Dose: 1 units Documented by: Magnesium Hydroxide (Magnesium Hydroxide Susp 30 Ml Udc) 30 ml PO DAILY PRN PRN Reason: Constipation Stop: 11/17/21 17:01 Magnesium Oxide (Magnesium Oxide 400 Mg Tab) 400 mg PO BID ZIGGY Stop: 11/19/21 08:59 Last Admin: 10/23/21 08:46 Dose: 400 mg Documented by: Metoprolol Succinate (Metoprolol Succ 50mg Ext Rel Tab) 50 mg PO DAILY [facility] Stop: 11/18/21 08:59 Last Admin: 10/23/21 08:46 Dose: 50 mg Documented by: Miscellaneous (Carbohydrates For Hypoglycemia ) 15 - 30 gm PO UD PRN PRN Reason: Hypoglycemia Protocol Stop: 11/17/21 17:01 Morphine Sulfate (Morphine Sulfate 2 Mg/Ml Carp) 2 mg IV Q3H PRN PRN Reason: Pain (1,2,3,4,5) & Pre PT Stop: 11/01/21 17:01 Last Admin: 10/22/21 22:39 Dose: 2 mg Documented by: Naloxone HCl (Naloxone Hcl 0.4 Mg/1 Ml Vial/Carp) 0.1 mg IV UD PRN PRN Reason: Opiate Overdose Stop: 11/17/21 17:01 Olanzapine (Olanzapine 10 Mg/2.1 Ml Sdv) 2.5 mg IM Q4H PRN PRN Reason: Anxiety/Agitation Stop: 11/19/21 01:56 Ondansetron HCl (Ondansetron Inj 2 Mg/Ml 2 Ml Vial) 4 mg IV Q6H PRN PRN Reason: Nausea And Vomiting Stop: 11/18/21 08:35 Last Admin: 10/19/21 18:02 Dose: 4 mg Documented by: Pantoprazole Sodium (Pantoprazole 40 Mg Tab) 40 mg PO DAILY [facility]; Protocol Stop: 11/18/21 08:59 Last Admin: 10/23/21 08:46 Dose: 40 mg Documented by: Senna/Docusate Sodium (Docusate Sodium/Senna 50/8.6mg Tab) 2 tab PO HS [facility] Stop: 11/17/21 20:59 Last Admin: 10/22/21 21:06 Dose: 2 tab Documented by:
--- NOTE | 2021-10-24 08:18 | Discharge Summary ---
Date of Service October 24, 2021 Admission HPI Per Admitting Provider 86-year-old female with PMH DM type II, CAD s/p CABG in 2001, HTN, DM type II, and other problems listed below who presents to the ED for evaluation of left hip pain. Patient reports that she was using her vacuum at home and tripped over the cord. She then fell onto her left side. She was home alone however her son stopped by about 15 minutes after. EMS was called and patient was brought to the ED for further evaluation. Patient did not strike her head and she denies any loss of consciousness. Reports she otherwise has been feeling well recently. Denies any exertional chest pain or shortness of breath. No lightheadedness, dizziness, diaphoresis, syncopal events. Denies abdominal pain, nausea, vomiting, diarrhea. No urinary symptoms. In the ED, patient is found to have slightly impacted and angulated subcapital left femoral neck fracture. Labs unremarkable. Patient was mildly hypoxic at 88% after receiving IV pain medication. She is saturating well on 2 L of oxygen. Admission Exam Per Admitting Provider Constitutional: + thin; no acute distress Vitals as abo ve Eyes: PERRL, conjunctivae normal, anicteric sclerae ENMT: external ear and nose normal, oropharynx normal Respiratory: normal respiratory effort, lungs clear to auscultation Cardiovascular: Rate/Rhythm: regular rate and regular rhythm Vessels: normal peripheral pulses Extremities: no edema Gastrointestinal (Abdomen): normal bowel sounds, soft, nontender, no hepatosplenomegaly Musculoskeletal: LLE shortened and externally rotated Skin: no rashes, warm and dry Neurologic: PERRL, EOMI, accommodation nl, no face palsy, no dysarthria Psychiatric: A+Ox3, euthymic affect Principal Diagnosis Fracture of Left Femoral neck s/p bipolar hemiarthroplasty,HTN,Type 2 Diabetes,CAD Discharge Exam Sitting on a chair without any acute distress Constitutional + thin; not ill appearing Eyes PERRL, conjunctivae normal, anicteric sclerae ENMT external ear and nose normal, oropharynx normal Neck trachea midline, no thyromegaly Respiratory no respiratory distress Auscultation: lungs clear to auscultation bilaterally Cardiovascular Rate/Rhythm: regular rate and regular rhythm Heart Sounds: normal S1 and normal S2; no murmur Extremities: no edema Gastrointestinal (Abdomen) Inspection/Auscultation: normal bowel sounds; abdomen not distended Percussion/Palpation: abdomen soft; abdomen nontender Discharge Data Allergies Allergy/AdvReac Type Severity Reaction Status Date / Time Penicillins Allergy Unknown Unknown Verified 10/18/21 14:17 Consultations 10/18/21 15:14 ED Decision to Admit Stat 10/18/21 17:02 Consult Anesthesiology Routine Consult Orthopedic Surgery Routine Procedures Performed Operation Date: 10/19/21 07:00 Actual Procedures p Left Bipolar Hip Prosthesis-Cemented(Left) - Kyle Medina MD Ordered Studies 10/18/21 13:48 CT lumbar spine wo con Stat CT pelvis wo con Stat Hospital Course (1) Fracture of femoral neck, left: Patient presenting from home after a mechanical fall Imaging shows impacted left femoral neck fracture Ortho consulted-appreciate input and recommendation S/P left hip cemented bipolar hemiarthroplasty by Dr. Medina, POD #3 Pain control & and bowel regimen PT/OT -has been ongoing and she will be going to [facility] this afternoon Will need Ortho appointment in about 2 to 3 weeks Post operative hospital delirium likely 2/2 to hospital setting, anesthesia, hip fracture Possible underlying infection, refer to below Scheduled Tylenol, try to avoid IV narcotics if able Resolved and no more issues SIRS Patient meets criteria for SIRS secondary to tachycardia and leukocytosis Cytosis may very well be reactive in setting of postop state Chest x-ray negative for infection blood Cultures NG24H Urine culture neg Initiated on 1 g IV Rocephin empirically ,will continue for total of 3 days Antibiotic course is done (2) Hypoxia: 88% on room air after IV pain medications Saturating well on 2L CXR clear Incentive spirometry encouraged Wean O2 as able, likely in setting of pain Has been saturating normally on room air (3) CAD (coronary artery disease): Remote history of CABG in 2001 Appears stable, no reports of chest pain, EKG without acute ST changes Resume ASA at the discretion of Ortho Continue statin, beta-velia Denies any cardiac symptoms (4) HTN (hypertension): BP normalized Continue metoprolol ramipril, amlodipine now on hold due to lower blood pressure (5) DM type 2 (diabetes mellitus, type 2): a1c 8.3 10/19/21 Hold oral agents and utilize NovoLog per protocol while hospitalized BSG 154, adequate We will go back to her usual medications on an outpatient (6) DVT prophylaxis: baby aspirin BID for 6 weeks per ORtho, then back to her daily dose. Dispo: med/surg, will need PT/OT post op and likely rehab She will be discharged to [facility] this afternoon Total Time Total Time Spent Total Time Spent (In Minutes): 40 minutes Discharge Plan Discharge Items Patient Disposition: Transfer Inpatient Rehab Fac Reason For Visit: LEFT FEMORAL NECK FRACTURE Discharge Diagnosis: Left Hip Arthroplasty for fracture Condition on Discharge: Good Activity: Per Instructions section Activity Comment: Weightbear as tolerated obeying hip precautions at all times. Weightbearing: Full weightbearing Weightbearing Comment: Weightbear as tolerated obeying hip precautions at all times. Non-emergency contact: Primary Care Provider Call non-emergency contact if: you have any medication questions and your symptoms worsen Follow-up/Referrals: Kyle Medina MD [Physician] - (Orthopedic follow-up 2-3 weeks from surgery date.) Nannette Johnson MD [Primary Care Provider] - (Please make an appointment with your primary care provider within 7 days following discharge from the facility) Diet: Carb Consistent or DM2 Diet Comment: Minced and moist Addtl Attending Provider Instructions: Please take precautions to avoid fall Continue aspirin 81 mg twice daily for 6 weeks and then go back to 81 mg once daily discontinue Try Tylenol for pain control and avoid any use of narcotics ACTIVITY RECOMMENDATIONS: Physical Therapy: * Aggressive physical therapy is not usually needed. You will learn to take care of yourself safely and walk. * Follow the "Hip Precautions Instructions." * In some cases, the psych social worker at the hospital will arrange to have a therapist come to your house for the first couple of weeks to help you learn these skills. * You need to practice on your own or with the help of a family member as needed. * When you learn these skills, most of the therapy can be done on your own. Home Exercise: * You were shown a series of exercises in the hospital. Do these exercises three to four times each day including the exercises you were shown in physical therapy. Walking: * Get up and walk several times each day. For the first four weeks, try not to stand or walk for more than one hour at a time. If you do stand or walk for more than one hour, you will not hurt anything, but your leg will likely swell. * As you feel comfortable, you may change from the walker or crutches to a cane and then to independent walking. MEDICATIONS: New Medicine: * The most common side effects of pain medicine and iron are nausea and constipation. If nausea or constipation is too much of a problem or if you have any questions about your new medicines or doses, call [facility] at [phone]. We will try to help you manage these issues. "VERY IMPORTANT TO READ AND REVIEW" Pain: * The immediate post-operative period after hip replacement surgery is often quite painful. * You are given a prescription for pain medicine. You should take it, as directed, when you need it, especially before physical therapy and before going to bed. Pain that interferes with sleep is very common and can last several months. * You will likely need pain medicine for the first two to four weeks. It will not stop all of the pain. The pain will lessen and as you feel better, you may change to milder pain medicine such as Tylenol. * The most common side effects of pain medicine are nausea and constipation, so don't take more than you need. SPECIAL CARE INSTRUCTIONS: TEDs/Elastic Stockings: * The white elastic stockings help limit swelling and prevent blood clots from forming in your legs. The more you wear them, the more they work. * Wear them for six weeks. Incision Site Care: * Remove dressing postoperative day 2 and then shower. Keep direct shower pressure off the incision site. * After showering, cover ghassan with dry gauze and change daily or more frequently if the dressing is getting saturated with drainage. * May completely stop using bandage if wound is dry and no drainage * Mena are removed between 2 and 3 weeks post-op. If your follow-up appointment is made before 2 weeks, please have your appointment re- scheduled. It is too early to remove the ghassan. Prevention of Infection: * Take antibiotics one hour before any dental cleaning, dental work, urological procedure, gastrointestinal procedure or any invasive surgery in order to prevent your new joint from getting infected. * You may get the antibiotics from the doctor performing the procedure or you may call our office at before and we will call in a prescription to the pharmacy of your choice. Things to Watch For: * Drainage from the incision site that occurs more than one week after your surgery. * Severely increased leg pain or swelling. * Increased redness at the incision site. * Fever above 102 degrees Fahrenheit. * Unusual chest pain or shortness of breath. * Unusual pain or burning with urination. Call [facility] at with any of the above problems or if you have any questions about your medicines or recovery. FOLLOW UP VISIT: Make an appointment to see your doctor for approximately two weeks after surgery for a progress check and staple removal by calling the office at . Pending Studies at Discharge: No Stand-Alone Forms: My [facility] Skilled Items Patient informed of condition?: Yes DNR: No Discharge Level of Care: Acute rehab Communicable Disease: No Discharge Prognosis: Improving Lines: None Urinary Catheter: No Medications and DC Order Prescriptions: New aspirin 81 mg Tablet,Delayed Release (Dr/Ec) 81 mg PO BID Qty: 60 RF: 0 magnesium oxide 400 mg (241.3 mg magnesium) Tablet 400 mg PO BID Qty: 60 RF: 0 acetaminophen 325 mg Tablet 650 mg PO Q8 PRN (Reason: pain) Qty: 30 RF: 0 Continued multivitamin Tablet 1 tab PO DAILY RF: 0 atorvastatin 40 mg tablet 80 mg PO DAILY RF: 0 metformin 500 mg tablet 500 mg PO DAILY RF: 0 metoprolol succinate 50 mg Tablet Extended Release 24 Hr 50 mg PO DAILY RF: 0 amlodipine 2.5 mg Tablet 2.5 mg PO DAILY RF: 0 omeprazole 40 mg Capsule,Delayed Release(Dr/Ec) 40 mg PO DAILY RF: 0 aspirin [Aspirin Low Dose] 81 mg Tablet,Delayed Release (Dr/Ec) 81 mg PO HS RF: 0 ramipril 10 mg capsule 10 mg PO DAILY RF: 0 Discharge Orders: Discharge Order (Routine); Ordered 10/23/21 Ordered By: Debbie Ramos/Other Patient Handouts: Managing Type 2 Diabetes Admission Data Admit Date/Time: 10/18/21 15:24 Attending Provider: Debbie Wood Admit Provider: Becky Hong Primary Care Provider: Nannette Johnson Other Providers: Allegra Richter ; Becky Hong ; Betty Duong ; Issa Diehl ; [facility] Other Interventions: Discharge Summary Assessment (RN) Last Done: 10/23/21 13:46
== END 2021-10-23 16:05 | DRG 522 ==
LOC: ED 13:19 → SUATTDRO 15:24 → 3N 15:24